=== PATIENT | male | born 1945 | race Caucasian/White ===

== ENCOUNTER 2019-03-09 06:30 | Observation (INO) ==
[2019-03-09 07:08] LABS: Bilirubin,Urine Small (Negative); Blood,Urine Negative (Negative); Clarity,Urine Clear (Clear); Color,Urine Dark Yellow (Yellow); Glucose,Urine (UA) >=1000 mg/dL (Normal); Ketones,Urine 15 mg/dL (Negative); Leukocyte Esterase,Urine Trace (Negative); Nitrite,Urine Negative (Negative); PH,Urine 5.5 pH Units (5.0-8.0); Protein,Urine Negative (Neg-Trace); Specific Gravity,Urine 1.019 (1.010-1.025); Urobilinogen,Urine Normal (Normal)
[2019-03-09 07:10] LABS: Bacteria,Urine None Seen per hpf (None-Few); Hyaline Casts,Urine None Seen per lpf (None-Few); RBC,Urine 15-30 per hpf (0-3); Squamous Epithelial Cell,Urine None Seen per lpf (None-Few); WBC,Urine 0-3 per hpf (0-3)
--- NOTE | 2019-03-09 07:12 | Emergency Department Note ---
Disposition Clinical Impression: Acute cholecystitis Disposition: Admitted As Inpatient Condition: Good Referrals: Get Stark DO [Primary Care Provider] - Forms: ED Satisfaction Letter, Work/School Release Time of Disposition: 09:34 Abdominal Pain HPI - General Chief Complaint: ED Abdominal Pain Stated Complaint: upper abd pain Time Seen by Provider: 03/09/19 06:36 Source: patient Mode of arrival: private vehicle Limitations: no limitations Nursing Notes Reviewed: Yes Vital Signs Reviewed: Yes - History of Present Illness HPI Narrative: Carl is a pleasant 73 yo M. He presents to the clinic with a CC of "attacks" his right upper quadrant worsening over the past 2 or 3 months. He notes that he is also side of radiation to the right shoulder recently. He states that the attacks are worse with fried food however states that last night he was eating a salad when the worst attack came. He also noted that he had chills last night which prompted him to seek emergency medical care today. Fevers vomiting but states he has been nauseous. Denies previous abdominal surgeries. He currently rates his pain at a 5 out of 10 states that last night his attacks the worst pain he said his life. He states that the attacks last for roughly 2 or 3 hours and then go away without medication or other intervention. He currently denies pain medication. Last food intake was 3 PM yesterday. He states that he had sips of water throughout the evening. She does take Rosetta her last dose 7:30 AM on March 08 roughly 24 hours ago. Pt Subjective Complaint: abdominal pain Onset (ago): month(s) Consistency: intermittent Location: RUQ Pain Scale: 6 Quality: cramping Radiation: other Improves with: rest Worsens with: eating Associated symptoms: Reports: nausea - Related Data Allergies Allergy/AdvReac Type Severity Reaction Status Date / Time No Known Allergies Allergy Verified 03/09/19 06:33 All systems ED: reviewed and negative except as stated. Review of Systems: As Per HPI Abdominal Pain PMH - Past Medical History Medical history: Reports: asthma, hyperlipidemia, hypertension Male Surgical History: Reports: vasectomy Psychiatric history: Reports: no psych history - Social History Smoking status: Never smoker Alcohol use: Reports: occasionally Drug use: Reports: none Physical Exam - General Limitations: no limitations General appearance: alert, in no apparent distress - Head Head exam: atraumatic - Eye Eye exam: Present: normal appearance, PERRL - Chest Chest inspection: Present: normal inspection, symmetric chest wall rise - Respiratory Respiratory exam: Present: normal lung sounds bilaterally. Absent: respiratory distress, wheezes - Cardiovascular Cardiovascular exam: Present: regular rate, normal rhythm - Abdominal Exam Abdominal exam: Present: soft, tenderness, other (Negative Meraz sign). Absent: guarding, rebound, Meraz's sign - Extremities Exam Extremities exam: Present: normal inspection - Expanded Lower Extremity Exam Hip/Pelvis exam: Present: normal inspection Neurovascular/Tendon exam: Present: normal capillary refill Gait: not tested/not observed - Back Exam Back exam: Present: normal inspection - Neurological Exam Neurological exam: Present: alert, oriented X3 - Psychiatric Psychiatric exam: Present: normal affect, normal mood - Skin Skin exam: Present: warm, dry, intact Course Vital Signs Temperature 98.7 F 03/09/19 06:33 Pulse Rate 74 03/09/19 06:33 Respiratory Rate 16 03/09/19 06:33 Blood Pressure 172/88 03/09/19 06:33 O2 Sat by Pulse Oximetry 96 03/09/19 06:33 Temperature 98.7 F 03/09/19 06:33 Pulse Rate 74 03/09/19 06:33 Respiratory Rate 16 03/09/19 06:33 Blood Pressure 172/88 03/09/19 06:33 O2 Sat by Pulse Oximetry 96 03/09/19 06:33 Oxygen Delivery Oxygen Delivery Room Air Abdominal Pain - MDM Narrative Medical decision making narrative: Kamran - surgeon. Case is discussed with Dr. Andrew 905. At 9:15 Dr. Andrew was at bedside. Patient was kept nothing by mouth while in the emergency room. Acute cholecystitis visible on ultrasound. Patient did note some increased pain before he was taken off the floor he was given some Motrin and Bentyl for his discomfort. Dr. Andrew admitted patient. - Medical Records Medical records reviewed: Yes I reviewed the patient's medical records. - Lab Data Lab results reviewed: Yes I reviewed the patient's lab results. Result diagrams: 03/09/19 07:56 Lab Results 03/09/19 03/09/19 Range/Units 06:43 07:56 WBC 17.0 H (4.3-11.1) K/mcL RBC 4.88 (4.19-5.50) M/mcL Hgb 15.7 (12.9-16.9) g/dL Hct 45.4 (37.5-50.1) % MCV 93.0 (83.0-100.0) fL MCH 32.2 (28.0-33.3) pg MCHC 34.6 (31.6-35.5) g/dL RDW 12.4 (11.5-14.5) % Plt Count 207 (140-400) K/mcL MPV 10.0 (9.4-12.4) fL Immature Gran % 0.4 (0-4) % Seg Neutrophils % 90.5 % Lymphocytes % 2.4 % Monocytes % 6.5 % Eosinophils % 0.0 % Basophils % 0.2 % Neutrophils # 15.4 H (1.6-8.9) K/mcL Lymphocytes # 0.4 L (0.6-4.6) K/mcL Monocytes # 1.1 (0.0-1.3) K/mcL Eosinophils # 0.0 (0.0-0.6) K/mcL Basophils # 0.0 (0.0-0.2) K/mcL Urine Color Dark Yellow (Yellow) Urine Clarity Clear (Clear) Urine pH 5.5 (5.0-8.0) pH Units Ur Specific [place] 1.019 (1.010-1.025) Urine Protein Negative (Neg-Trace) mg/dL Urine Glucose (UA) >=1000 H (Normal) mg/dL Urine Ketones 15 H (Negative) mg/dL Urine Blood Negative (Negative) Urine Nitrite Negative (Negative) Urine Bilirubin Small H (Negative) Urine Urobilinogen Normal (Normal) mg/dL Ur Leukocyte Esterase Trace H (Negative) Urine Microscopic RBC 15-30 H (0-3) per hpf Urine Microscopic WBC 0-3 (0-3) per hpf Ur Squamous Epith Cells None Seen (None-Few) per lpf Urine Bacteria None Seen (None-Few) per hpf Hyaline Casts None Seen (None-Few) per lpf Ur Culture Indicated? YES A (NO) - Radiology Data Radiology results reviewed: Yes I reviewed the patient's radiology results. - EKG Data EKG attestation: Yes I reviewed and interpreted this EKG.
[2019-03-09 08:07] LABS: Basophils % 0.2 %; Hematocrit 45.4 % (37.5-50.1); Hemoglobin 15.7 g/dL (12.9-16.9); Immature Granulocytes % 0.4 % (0-4); Lymphocytes # 0.4 K/mcL (0.6-4.6); Lymphocytes % 2.4 %; Mean Corpuscular HGB Conc 34.6 g/dL (31.6-35.5); Mean Corpuscular Hemoglobin 32.2 pg (28.0-33.3); Monocytes # 1.1 K/mcL (0.0-1.3); Monocytes % 6.5 %; Neutrophils # 15.4 K/mcL (1.6-8.9); Platelet Count 207 K/mcL (140-400); Red Blood Count 4.88 M/mcL (4.19-5.50); Red Cell Distribution Width 12.4 % (11.5-14.5); Segmented Neutrophils % 90.5 %
--- NOTE | 2019-03-09 09:09 | Acute Care Surgery H&P ---
<MckaylaMinoo N - Last Filed: 03/09/19 09:33> Date of Encounter: 03/09/19 Time of Encounter: 09:33 Assessment and Plan (1) Cholecystitis Current Visit: Yes Status: Acute 73-year-old male presenting to the emergency department with 2-3 month history of biliary colic with right upper quadrant ultrasound imaging evidence for acute cholecystitis -imaging and symptoms consistent with acute cholecystitis -Plan for laparoscopic cholecystectomy today -IV antibiotics with mefoxin Q8H -Last oral intake was 3 PM previous day, continue NPO -DVT prophylaxis -Risks and benefits of the surgery were explained to patient and . They have agreed to proceed with surgery and all were answered. History of Present Illness Chief complaint: abdominal pain HPI: Mr. Mcfarlane is a 73 year old male with a history of hypertension and hyperlipidemia who presented to the emergency department with a 2 to three-month history of right upper quadrant abdominal pain. Pain is postprandial in nature and worse with fatty foods. Reports the pain last night was the worst it has been an associated with chills. Also reports nausea, but no vomiting or fevers. Patient denied any history of abdominal surgeries, only previous hospital admissions has been for acute diverticulitis which was treated with IV antibiotics. Workup in the emergency department included a gallbladder ultrasound significant for intrahepatic biliary ductal dilation with gallbladder wall thickening and pericholecystic fluid with multiple gallstones in the gallbladder concerning acute cholecystitis was consistent with patient's biliary colic symptoms. Patient is currently resting comfortably in bed in no acute di stress, reports last food intake was approximately 3 PM the previous day. Past Med Surg Social Fam HX - Past Medical History Medical history: asthma, hyperlipidemia, hypertension Psychiatric history: no psych history - Social History Smoking Status: Never smoker Smokeless Tobacco Status: No Alcohol use: occasionally Drug use: none Medications and Allergies Allergy/AdvReac Type Severity Reaction Status Date / Time No Known Allergies Allergy Verified 03/09/19 06:33 Review of Systems All systems PM: The remainder of the systems were reviewed and are negative - Constitutional chills, no fever(s) - Cardiovascular no chest pain - Respiratory no dyspnea - Gastrointestinal abdominal pain, nausea, no constipation, no diarrhea, no vomiting - Integumentary no rash General Surgery Exam Initial Vital Signs Temp Pulse Resp BP Pulse Ox 98.7 F 74 16 172/88 96 03/09/19 06:33 03/09/19 06:33 03/09/19 06:33 03/09/19 06:33 03/09/19 06:33 - General physical appearance well developed, well nourished - Eyes PERRL, normal ocular movement - ENT normal pinna, normal nares - Neck trachea midline, no venous distension - Respiratory normal expansion, normal respiratory effort, other (Mild wheezes on expiration) - Cardiovascular Cardiovascular exam: Present: RRR. Absent: murmurs - Abdomen Abdomen general surgery: Present: bowel sounds present, soft, tender (Mild tenderness to palpation of the right upper quadrant) - Integumentary Integumentary general surgery: Present: warm and dry - Musculoskeletal Present: normal posture - Psychiatric Psychiatric general surgery: Present: A&Ox3, appropriate Results - Labs 03/09/19 07:56 Abnormal lab results WBC 17.0 K/mcL (4.3-11.1) H 03/09/19 07:56 15.4 K/mcL (1.6-8.9) H 03/09/19 07:56 0.4 K/mcL (0.6-4.6) L 03/09/19 07:56 >=1000 mg/dL (Normal) H 03/09/19 06:43 15 mg/dL (Negative) H 03/09/19 06:43 Small (Negative) H 03/09/19 06:43 Ur Leukocyte Esterase Trace (Negative) H 03/09/19 06:43 15-30 per hpf (0-3) H 03/09/19 06:43 Ur Culture Indicated? YES (NO) A 03/09/19 06:43 All other labs normal. <Davidson Andrew - Last Filed: 03/09/19 11:07> Date of Encounter: 03/09/19 History of Present Illness HPI: Mr. Mcfarlane is a 73 year old male Review of Systems All systems PM: The remainder of the systems were reviewed and are negative General Surgery Exam Initial Vital Signs Temp Pulse Resp BP Pulse Ox 98.7 F 74 16 172/88 96 03/09/19 06:33 03/09/19 06:33 03/09/19 06:33 03/09/19 06:33 03/09/19 06:33 Results - Labs 03/09/19 07:56 03/09/19 07:56 Abnormal lab results WBC 17.0 K/mcL (4.3-11.1) H 03/09/19 07:56 15.4 K/mcL (1.6-8.9) H 03/09/19 07:56 0.4 K/mcL (0.6-4.6) L 03/09/19 07:56 Chloride 97 mEq/L (98-107) L 03/09/19 07:56 Glucose 238 mg/dL (70-105) H 03/09/19 07:56 4.2 mg/dL (0.3-1.0) H 03/09/19 07:56 2.4 mg/dL (0.0-0.2) H 03/09/19 07:56 1.8 mg/dL (0.0-1.2) H 03/09/19 07:56 AST 191 Units/L (13-39) H 03/09/19 07:56 ALT 301 Units/L (7-52) H 03/09/19 07:56 2.0 g/dL (2.4-3.5) L 03/09/19 07:56 2.5 (1.1-2.2) H 03/09/19 07:56 < 3 Units/L (11-82) L 03/09/19 07:56 >=1000 mg/dL (Normal) H 03/09/19 06:43 15 mg/dL (Negative) H 03/09/19 06:43 Small (Negative) H 03/09/19 06:43 Ur Leukocyte Esterase Trace (Negative) H 03/09/19 06:43 15-30 per hpf (0-3) H 03/09/19 06:43 Ur Culture Indicated? YES (NO) A 03/09/19 06:43 Diabetes panel 03/09/19 Range/Units 07:56 Sodium 136 (136-145) mEq/L Potassium 3.9 (3.5-5.1) mEq/L Chloride 97 L (98-107) mEq/L Carbon Dioxide 26 (23-29) mEq/L BUN 15 (8-23) mg/dL Creatinine 0.92 (0.70-1.30) mg/dL Glucose 238 H (70-105) mg/dL Calcium 9.7 (8.6-10.3) mg/dL AST 191 H (13-39) Units/L ALT 301 H (7-52) Units/L Alkaline Phosphatase 59 (34-104) Units/L Albumin 5.0 (3.5-5.7) g/dL Calcium panel 03/09/19 Range/Units 07:56 Calcium 9.7 (8.6-10.3) mg/dL Albumin 5.0 (3.5-5.7) g/dL Pituitary panel 03/09/19 Range/Units 07:56 Sodium 136 (136-145) mEq/L Potassium 3.9 (3.5-5.1) mEq/L Chloride 97 L (98-107) mEq/L Carbon Dioxide 26 (23-29) mEq/L BUN 15 (8-23) mg/dL Creatinine 0.92 (0.70-1.30) mg/dL Glucose 238 H (70-105) mg/dL Calcium 9.7 (8.6-10.3) mg/dL Adrenal panel 03/09/19 Range/Units 07:56 Sodium 136 (136-145) mEq/L Potassium 3.9 (3.5-5.1) mEq/L Chloride 97 L (98-107) mEq/L Carbon Dioxide 26 (23-29) mEq/L BUN 15 (8-23) mg/dL Creatinine 0.92 (0.70-1.30) mg/dL Glucose 238 H (70-105) mg/dL Calcium 9.7 (8.6-10.3) mg/dL Total Bilirubin 4.2 H (0.3-1.0) mg/dL AST 191 H (13-39) Units/L ALT 301 H (7-52) Units/L Alkaline Phosphatase 59 (34-104) Units/L Albumin 5.0 (3.5-5.7) g/dL All other labs normal. - Attending Attestation I examined this patient and my medical decision-making was reviewed with the Resident Physician. I agree with the documented findings, disposition and treatment plan as described except to the extent set forth below. The patient is seen and evaluated in the emergency room with the resident. I personally reviewed reviewed the ultrasound images. The patient appears to have acute on chronic cholecystitis with cholelithiasis and leukocytosis. I recommended laparoscopic cholecystectomy and IV antibiotic therapy. Davidson Andrew MD FACS
[2019-03-09] MEDS ORDERED: *HR* Morphine 2 MG/ML SYRINGE IVP ONE (09:21)
--- NOTE | 2019-03-09 09:22 | Emergency Department Note ---
Disposition Clinical Impression: Cholecystitis Disposition: Admitted As Inpatient Condition: Good Time of Disposition: 09:10 General Adult HPI - General Chief complaint: ED Abdominal Pain Stated complaint: upper abd pain Time Seen by Provider: 03/09/19 06:36 Source: patient Mode of arrival: private vehicle Limitations: no limitations - History of Present Illness Pain Scale: 6 - Related Data Allergies Allergy/AdvReac Type Severity Reaction Status Date / Time No Known Allergies Allergy Verified 03/09/19 06:33 Past Medical History - Past Medical History Medical history: Reports: asthma, hyperlipidemia, hypertension Psychiatric history: Reports: no psych history - Social History Smoking Status: Never smoker Smokeless Tobacco Status: No Alcohol use: Reports: occasionally Drug use: Reports: none Physical Exam - General Limitations: no limitations General appearance: alert, in no apparent distress Course Vital Signs Temperature 98.7 F 03/09/19 06:33 Pulse Rate 74 03/09/19 06:33 Respiratory Rate 16 03/09/19 06:33 Blood Pressure 172/88 03/09/19 06:33 O2 Sat by Pulse Oximetry 96 03/09/19 06:33 Temperature 98.7 F 03/09/19 06:33 Pulse Rate 74 03/09/19 06:33 Respiratory Rate 16 03/09/19 06:33 Blood Pressure 172/88 03/09/19 06:33 O2 Sat by Pulse Oximetry 96 03/09/19 06:33 Oxygen Delivery Oxygen Delivery Room Air Medical Decision Making - Lab Data Result diagrams: 03/09/19 07:56 Lab Results 03/09/19 03/09/19 Range/Units 06:43 07:56 WBC 17.0 H (4.3-11.1) K/mcL RBC 4.88 (4.19-5.50) M/mcL Hgb 15.7 (12.9-16.9) g/dL Hct 45.4 (37.5-50.1) % MCV 93.0 (83.0-100.0) fL MCH 32.2 (28.0-33.3) pg MCHC 34.6 (31.6-35.5) g/dL RDW 12.4 (11.5-14.5) % Plt Count 207 (140-400) K/mcL MPV 10.0 (9.4-12.4) fL Immature Gran % 0.4 (0-4) % Seg Neutrophils % 90.5 % Lymphocytes % 2.4 % Monocytes % 6.5 % Eosinophils % 0.0 % Basophils % 0.2 % Neutrophils # 15.4 H (1.6-8.9) K/mcL Lymphocytes # 0.4 L (0.6-4.6) K/mcL Monocytes # 1.1 (0.0-1.3) K/mcL Eosinophils # 0.0 (0.0-0.6) K/mcL Basophils # 0.0 (0.0-0.2) K/mcL Urine Color Dark Yellow (Yellow) Urine Clarity Clear (Clear) Urine pH 5.5 (5.0-8.0) pH Units Ur Specific [place] 1.019 (1.010-1.025) Urine Protein Negative (Neg-Trace) mg/dL Urine Glucose (UA) >=1000 H (Normal) mg/dL Urine Ketones 15 H (Negative) mg/dL Urine Blood Negative (Negative) Urine Nitrite Negative (Negative) Urine Bilirubin Small H (Negative) Urine Urobilinogen Normal (Normal) mg/dL Ur Leukocyte Esterase Trace H (Negative) Urine Microscopic RBC 15-30 H (0-3) per hpf Urine Microscopic WBC 0-3 (0-3) per hpf Ur Squamous Epith Cells None Seen (None-Few) per lpf Urine Bacteria None Seen (None-Few) per hpf Hyaline Casts None Seen (None-Few) per lpf Ur Culture Indicated? YES A (NO) Attestation Statement - Attestation Attestation: For this encounter, I have reviewed the GROUND SURVEILLANCE SYSTEMS OPERATOR or PA documentation, treatment plan, and medical decision making; and I have had face to face time with this patient. Patient appears comfortable on my arrival to the room but is still complaining of pain. We have given him some symptomatic treatment. Has cholecystitis by ultrasound. Accepted by the surgeon for admission.
[2019-03-09] MEDS ORDERED: Dicyclomine 20 MG/2 ML AMPUL IM ONE (09:23)
[2019-03-09] MEDS ORDERED: Naloxone 0.4 MG/ML INJ IVP PRN ×2 (09:31→18:37)
[2019-03-09] MEDS ORDERED: Ondansetron ODT 4 MG TAB.RAPDIS SL PRN ×2 (09:31→18:37)
[2019-03-09] MEDS ORDERED: *HR* OxyCODONE/APAP 5/325 TABLET PO PRN ×2 (09:40→18:37)
[2019-03-09 10:10] LABS: Alanine Aminotransferase 301 Units/L (7-52); Albumin/Globulin Ratio 2.5 (1.1-2.2); Alkaline Phosphatase 59 Units/L (34-104); Aspartate Amino Transferase 191 Units/L (13-39); BUN/Creatinine Ratio 16 (6-26); Bilirubin,Direct 2.4 mg/dL (0.0-0.2); Bilirubin,Indirect 1.8 mg/dL (0.0-1.2); Bilirubin,Total 4.2 mg/dL (0.3-1.0); Blood Urea Nitrogen 15 mg/dL (8-23); Calcium 9.7 mg/dL (8.6-10.3); Carbon Dioxide 26 mEq/L (23-29); Chloride 97 mEq/L (98-107); Glucose 238 mg/dL (70-105); Lipase < 3 Units/L (11-82); Osmolality,Calculated 291 (280-300); Potassium 3.9 mEq/L (3.5-5.1); Sodium 136 mEq/L (136-145); Troponin I < 0.03 ng/mL (< 0.04); eGFR For Non-African Americans > 60 (> 60)
[2019-03-09] MEDS ORDERED: *HR* Heparin 5,000 UNIT/ML VIAL SQ SCH (14:00)
[2019-03-09] MEDS ORDERED: Ringers Solution, Lactated 500 ML IVC ONE (14:23)
[2019-03-09] MEDS ORDERED: Acetaminophen 650 MG RECTAL SUPP RC ONE (14:26)
[2019-03-09] MEDS ORDERED: Acetaminophen 325 MG RECTAL SUPP RC ONE (14:29)
--- NOTE | 2019-03-09 15:15 | Anesthesia Evaluation PreOp ---
Date of Encounter: 03/09/19 Time of Encounter: 16:28 - Past History Planned Operation: Lap cholecystectomy, gram Cardiac History: HTN, Hyperlipidemia Pulmonary History: Asthma FOOD AND DRUG RESEARCH SCIENTIST History: Denies Any Significant HX Other Medical History: Hepatic (elevated LFT's - acute cholecystitis), Diabetes Type II (does not take medications) Anesthesia History: No Prior Anesthetic Complications (no fhx of problems with anesthesia) Alcohol Use: occasionally Drug use: none Medications and Allergies Allergy/AdvReac Type Severity Reaction Status Date / Time No Known Allergies Allergy Verified 03/09/19 06:33 - Meds/Allergy Pre-op Review Medications Reviewed: Yes Allergies Reviewed: Yes Beta Blockers on Current Med List: No Anesthesia Results - Labs 03/09/19 07:56 03/09/19 07:56 Anesthesia Exam Last Vital Signs Temp 102.9 F H 03/09/19 14:15 Pulse 126 03/09/19 14:15 Resp 18 03/09/19 14:15 BP 120/64 03/09/19 14:15 Pulse Ox 91 03/09/19 14:15 Weight: 200 lbs NPO (# of Hours): > 8 hrs - HEENT Pupil (Motor): Pupils equal, EOMI Mallampati: III Teeth: Normal Oral Opening: Greater than 3 - FOOD AND DRUG RESEARCH SCIENTIST LOC: Oriented - Cardiac Rhythm: Regular Murmur: None - Pulmonary Breath Sounds: bilateral Clear Respiratory Effort: Symmetrical Anesthesia Assess/Plan ASA Score: 2 Level of consciousness: Cooperative Anesthetic Plan: General Monitoring Plan: Standard Monitors Recovery Plan: PACU
[2019-03-09] MEDS ORDERED: cefOXitin 2,000 MG in Water for inj. (sterile) 20 ML 20 ML IVP SCH (16:00)
[2019-03-09] MEDS ORDERED: *HR* Propofol 200 MG/20 ML VIAL IVP ONE (16:15)
[2019-03-09] MEDS ORDERED: *HR* FentaNYL (PF) 100 MCG/2 ML VIAL ONE ×2 (16:15)
[2019-03-09] MEDS ORDERED: *HR* Succinylcholine 200 MG/10 ML VIAL IVP ONE (16:18)
[2019-03-09] MEDS ORDERED: Lidocaine -MPF 2% 2 ML VIAL ONE (16:18)
[2019-03-09] MEDS ORDERED: *HR* Rocuronium Bromide 50 MG/5 ML VIAL ONE (16:18)
[2019-03-09] MEDS ORDERED: CefOXitin 1,000 MG VIAL ONE (16:19)
[2019-03-09] MEDS ORDERED: Lidocaine -MPF 4% 5 ML AMPUL ONE (16:19)
[2019-03-09] MEDS ORDERED: Isovue-300 50 ML VIAL ONE (16:46)
[2019-03-09] MEDS ORDERED: Dexamethasone 4 MG/ML VIAL ONE (16:52)
[2019-03-09] MEDS ORDERED: Ondansetron 4 MG/2 ML VIAL ONE (16:52)
[2019-03-09] MEDS ORDERED: *HR* PHENYLEPHRINE 1,000 MCG/10 ML SYRINGE IVP ONE ×2 (17:02→17:15)
[2019-03-09] MEDS ORDERED: Ketorolac 30 MG/ML VIAL ONE (17:12)
--- NOTE | 2019-03-09 17:55 | Operative Note ---
Date of procedure: 03/09/19 Pre-op diagnosis: Acute cholecystitis Post-op diagnosis: same Procedure: Laparoscopic cholecystectomy, cholangiogram Anesthesia: PRIMO Surgeon: Davidson Andrew Was there an commercial escrow assistant present: Yes Survey Interviewer: Sofya Uriarte Estimated blood loss (cc): 25 Specimen: Gallbladder and contents Condition: stable Disposition: PACU Procedure in Detail: Laparoscopic cholecystectomy and intraoperative cholangiogram Operative procedure: after informed consent and appropriate patient identification, the patient was taken to the major operating suite and placed supine position and given adequate general endotracheal anesthesia. The abdomen was prepped and draped in sterile fashion utilizing ChloraPrep standard draping techniques. Timeout was taken and the patient was identified. I made a vertical midline incision below the umbilicus and dissected down to level of fascia. I placed 2 traction stitches of 0 vicryl in the midline fascia and the abdominal cavity was entered visually. A Mckay trocar was placed in the abdomen and the abdomen was insufflated to 15 mmHg pressure CO2. The gallbladder was visualized. I placemed an 11 port in the subxiphoid area and two 5 mm ports in the subcostal area. The gallbladder was visualized. The gallbladder was grossly edematous. There was visible pus from the surface of the gallbladder consistent with acute cholecystitis. The gallbladder was grasped and elevated. A variety of blunt and sharp dissection techniques were used to isolate the cystic duct and cystic artery. The cystic artery was controlled with 2 surgical clips proximally and one distally and it was divided. I placed a surgical clip on the neck the gallbladder and obtained an intraoperative cholangiogram using 30 mL of Isovue. Intraoperative cholangiogram was normal. The cholangiocatheter was removed and the cystic duct was controlled with 2 surgical clips proximally and was divided. The gallbladder was removed from the gallbladder fossae using electrocautery. The gallbladder was removed from the abdomen through the #11 port site. I replaced the #11 port and irrigated with copious amounts of antibiotic containing solution. There was no evidence of bleeding or bile leak. All trochars were removed. Fascia was closed with 0 Vicryl and the skin with 2-0 and 4-0 Vicry. He tolerated the procedure well and was transferred to recovery in stable condition
[2019-03-09] MEDS ORDERED: Ringers Solution, Lactated 1,000 ML ONE (18:20)
[2019-03-09] MEDS ORDERED: OXYCODONE Oral CONC 10 MG/0.5 ML ORAL.SYG SL PRN (18:37)
[2019-03-09] MEDS: *HR* Heparin 5,000 UNIT/ML VIAL SQ SCH (20:34)
[2019-03-09] MEDS: cefOXitin 2,000 MG in Water for inj. (sterile) 20 ML 20 ML IVP SCH (23:46)
[2019-03-10 02:16] LABS: Basophils % 0.1 %; Hematocrit 39.8 % (37.5-50.1); Immature Granulocytes % 0.4 % (0-4); Lymphocytes # 0.3 K/mcL (0.6-4.6); Lymphocytes % 2.6 %; Mean Corpuscular HGB Conc 34.4 g/dL (31.6-35.5); Mean Platelet Volume 10.7 fL (9.4-12.4); Monocytes # 0.5 K/mcL (0.0-1.3); Monocytes % 4.8 %; Platelet Count 146 K/mcL (140-400); Red Blood Count 4.28 M/mcL (4.19-5.50); Red Cell Distribution Width 12.8 % (11.5-14.5); Segmented Neutrophils % 92.1 %
[2019-03-10 02:18] LABS: Hemoglobin 13.7 g/dL (12.9-16.9); Neutrophils # 9.9 K/mcL (1.6-8.9)
[2019-03-10 02:35] LABS: Platelet Estimate Decreased (Normal)
[2019-03-10 02:36] LABS: Alanine Aminotransferase 255 Units/L (7-52); Albumin 3.8 g/dL (3.5-5.7); Albumin/Globulin Ratio 1.8 (1.1-2.2); Alkaline Phosphatase 49 Units/L (34-104); Aspartate Amino Transferase 118 Units/L (13-39); BUN/Creatinine Ratio 17 (6-26); Bilirubin,Total 9.3 mg/dL (0.3-1.0); Blood Urea Nitrogen 19 mg/dL (8-23); Calcium 8.4 mg/dL (8.6-10.3); Carbon Dioxide 25 mEq/L (23-29); Chloride 100 mEq/L (98-107); Globulin 2.1 g/dL (2.4-3.5); Glucose 298 mg/dL (70-105); Osmolality,Calculated 295 (280-300); Potassium 3.7 mEq/L (3.5-5.1); Sodium 136 mEq/L (136-145); Total Protein 5.9 g/dL (6.4-8.9); eGFR For Non-African Americans > 60 (> 60)
[2019-03-10] MEDS: *HR* Heparin 5,000 UNIT/ML VIAL SQ SCH (06:05)
[2019-03-10] MEDS: cefOXitin 2,000 MG in Water for inj. (sterile) 20 ML 20 ML IVP SCH (09:21)
--- NOTE | 2019-03-10 10:58 | Discharge Summary ---
<Minoo Block N - Last Filed: 03/10/19 12:19> - NOTES TO OUTPATIENT PROVIDER Notes to Outpatient Provider: Patient is postoperative day 1 from lap Cholecystectomy for acute cholecystitis. Patient has hyperbilirubinemia with a total bilirubin of 4.2 on admission which fabrice to 9.3 after surgery. Recommend rechecking BMP and hepatic panel for resolution an outpatient basis. Patient also met sepsis criteria as he spiked one fever 102.9 prior to surgery, he was treated with IV antibiotics while inpatient remained afebrile for 24 hours prior to discharge. Orders not resulted at time of discharge: Pending orders 03/09/19 06:43 Culture,Urine [RM] Stat 03/09/19 17:50 Surgical Pathology [PTH] Routine Date of Encounter: 03/10/19 Time of Encounter: 07:30 - Discharge Diagnosis (1) Cholecystitis Priority: Primary Status: Acute General Surgery Exam Initial Vital Signs Temp Pulse Resp BP Pulse Ox 98.7 F 74 16 172/88 96 03/09/19 06:33 03/09/19 06:33 03/09/19 06:33 03/09/19 06:33 03/09/19 06:33 - General physical appearance well developed, well nourished - Eyes PERRL, normal ocular movement - ENT normal pinna, normal nares - Neck trachea midline, no venous distension - Respiratory normal expansion, normal respiratory effort - Cardiovascular Cardiovascular exam: Present: RRR - Abdomen Abdomen general surgery: Present: bowel sounds present, soft, tender (Appropriate postsurgical tenderness) - Incision Incision: Present: clean and dry, intact - Integumentary Integumentary general surgery: Present: warm and dry - Psychiatric Psychiatric general surgery: Present: A&Ox3, appropriate - Hospital Course Hospital course: Mr. Mcfarlane is a 73 year old male with a history of hypertension and hyperlipidemia who presented to the emergency department with a 2 to 3 month history of right upper quadrant abdominal pain. Pain is postprandial in nature and worse with fatty foods. Reports the pain last night was the worst it has been an associated with chills. Also reports nausea, but no vomiting or fevers. Patient denied any history of abdominal surgeries, only previous hospital admissions has been for acute diverticulitis which was treated with IV antibiotics. Workup in the emergency department included a gallbladder ultrasound significant for intrahepatic biliary ductal dilation with gallbladder wall thickening and pericholecystic fluid with multiple gallstones in the gallbladder concerning acute cholecystitis was consistent with patient's biliary colic symptoms. Patient underwent lap scopic cholecystectomy on same day. Gallbladder was noted to be inflamed. Patient tolerated surgery without complications. Prior to surgery patient had a fever 102.9 recorded. Treated with Tylenol and IV antibiotics while inpatient. Patient has been afebrile for 24 hours prior to discharge. He will be discharged with 7 days of Augmentin. Of note patient had hyperbilirubinemia with total bilirubin 4.2 on admission, repeat bilirubin on postoperative day 1 was 9.3. LFTs improved on postoperative day 1. Recommend rechecking BMP and hepatic panel as an outpatient. Patient to follow-up with acute care surgeon outpatient 2 weeks. - Time Spent with Patient Total time spent providing and/or coordinating discharge services: - Discharge Medications Prescriptions: New Amoxicillin/Clavulanate [Augmentin] 875 mg PO BIDWM 7 Days #14 tablet OxyCODONE/APAP 5/325 [Percocet 5/325 MG] 1 each PO Q6HR PRN 7 Days #28 tablet PRN Reason: Pain Continued Red Yeast Rice 1,200 mg PO BID Fluticasone Propionate Nasal [Flonase] 1 spray NS DAILY Flaxseed Oil/Trail 3,6,9 [Sv Flaxseed Oil 1,300 mg Sftgl] 1 cap PO BID Non-Formulary Medication 14 drop PO BID Vitamin E 400 unit PO BID Trail-3S/Dha/Epa/Fish Oil [Fish Oil 1,200 mg Softgel] 1 cap PO BID Lutein/Zeaxanthin [Ocuvite Lutein 25-5 mg Softgel] 1 cap PO BID Omeprazole Magnesium [Prilosec Otc] 20 mg PO BID Lisinopril/Hydrochlorothiazide [Zestoretic 20-25 mg Tablet] 1 tab PO DAILY Fluticasone/Vilanterol [Breo Ellipta 100-25 Mcg INH] 1 puff IH DAILY Ubidecarenone [Co Q-10] 200 mg PO BID Sildenafil Citrate 100 mg PO AD PRN PRN Reason: ERECTION Albuterol Sulfate [Ventolin Hfa] 2 puff IH Q4H PRN PRN Reason: Shortness Of Breath Home Medications: Albuterol Sulfate [Ventolin Hfa] 2 puff IH Q4H PRN 03/09/19 [History] Flaxseed Oil/Trail 3,6,9 [Sv Flaxseed Oil 1,300 mg Sftgl] 1 cap PO BID 03/09/19 [History] Fluticasone Propionate Nasal [Flonase] 1 spray NS DAILY 03/09/19 [History] Fluticasone/Vilanterol [Breo Ellipta 100-25 Mcg INH] 1 puff IH DAILY 03/09/19 [History] Lisinopril/Hydrochlorothiazide [Zestoretic 20-25 mg Tablet] 1 tab PO DAILY 03/09/19 [History] Lutein/Zeaxanthin [Ocuvite Lutein 25-5 mg Softgel] 1 cap PO BID 03/09/19 [History] Non-Formulary Medication 14 drop PO BID 03/09/19 [History] Trail-3S/Dha/Epa/Fish Oil [Fish Oil 1,200 mg Softgel] 1 cap PO BID 03/09/19 [History] Omeprazole Magnesium [Prilosec Otc] 20 mg PO BID 03/09/19 [History] Red Yeast Rice 1,200 mg PO BID 03/09/19 [History] Sildenafil Citrate 100 mg PO AD PRN 03/09/19 [History] Ubidecarenone [Co Q-10] 200 mg PO BID 03/09/19 [History] Vitamin E 400 unit PO BID 03/09/19 [History] Amoxicillin/Clavulanate [Augmentin] 875 mg PO BIDWM 7 Days #14 tablet 03/10/19 [Rx] OxyCODONE/APAP 5/325 [Percocet 5/325 MG] 1 each PO Q6HR PRN 7 Days #28 tablet 03/10/19 [Rx] Allergies/Adverse Reactions: Allergy/AdvReac Type Severity Reaction Status Date / Time No Known Allergies Allergy Verified 03/09/19 17:24 Date of admission: 03/09/19 09:08 Primary care physician: Get Stark DO Discharging clinician: Minoo Block Anticipated date of discharge: 03/10/19 Labs on day of discharge: Labs from last 24 hours 03/10/19 03/10/19 03/09/19 01:46 01:46 16:25 WBC 10.7 RBC 4.28 Hgb 13.7 D Hct 39.8 MCV 93.0 MCH 32.0 MCHC 34.4 RDW 12.8 Plt Count 146 MPV 10.7 Immature Gran % 0.4 Seg Neutrophils % 92.1 Lymphocytes % 2.6 Monocytes % 4.8 Eosinophils % 0.0 Basophils % 0.1 Neutrophils # 9.9 H Lymphocytes # 0.3 L Monocytes # 0.5 Eosinophils # 0.0 Basophils # 0.0 Platelet Estimate Decreased L Sodium 136 Potassium 3.7 Chloride 100 Carbon Dioxide 25 BUN 19 Creatinine 1.12 Est GFR ( Amer) > 60 Est GFR (Non-Af Amer) > 60 BUN/Creatinine Ratio 17 Glucose 298 H POC Glucose 168 H Calculated Osmolality 295 Calcium 8.4 L Total Bilirubin 9.3 H AST 118 H ALT 255 H Alkaline Phosphatase 49 Serum Total Protein 5.9 L Albumin 3.8 Globulin 2.1 L Albumin/Globulin Ratio 1.8 03/09/19 14:13 WBC RBC Hgb Hct MCV MCH MCHC RDW Plt Count MPV Immature Gran % Seg Neutrophils % Lymphocytes % Monocytes % Eosinophils % Basophils % Neutrophils # Lymphocytes # Monocytes # Eosinophils # Basophils # Platelet Estimate Sodium Potassium Chloride Carbon Dioxide BUN Creatinine Est GFR ( Amer) Est GFR (Non-Af Amer) BUN/Creatinine Ratio Glucose POC Glucose 173 H Calculated Osmolality Calcium Total Bilirubin AST ALT Alkaline Phosphatase Serum Total Protein Albumin Globulin Albumin/Globulin Ratio Preliminary micro results at discharge 03/09/19 06:43 Urine Culture - Preliminary Urine,Clean Catch Culture is incubating. - Impressions ITS Impressions Cholangiogram,Operative 03/09/19 00:00 IMPRESSION: Intraoperative cholangiogram with no discrete filling defect identified. Please see separately dictated operative report for complete intraoperative findings. D/ / Jony Elliott MD / Jony Elliott MD Interpreting Provider: Jony Elliott MD Gallbladder Ultrasound 03/09/19 07:01 IMPRESSION: Intrahepatic biliary ductal dilatation with gallbladder wall thickening and pericholecystic fluid with multiple stones seen within the gallbladder concerning for acute cholecystitis. D/ / 03/09/2019 08:52:00 Richard Rodriguez MD / Francesca Waite Interpreting Provider: Richard Rodriguez MD - Patient Status Disposition: Home, Self-Care Condition: Good Overall status at discharge: patient is progressing back to baseline - Discharge Instructions Instructions: Laparoscopic Cholecystectomy (DC) Follow Up With: Get Stark DO [Primary Care Provider] - Acute Care Surgery [Provider Group] - 03/26/19 (please make appointment for patient in 2 weeks for follow up after acute cholecystectomy) Additional Instructions: Follow-up with your primary care provider in one week. Call [facility] to establish follow-up appointment in 2 weeks. Return to the emergency department if you develop any fevers, chills, chest pain, shortness of breath, worsening abdominal pain, jaundice/yellowing of the eyes or skin, nausea, vomiting, diarrhea, or for any other new or concerning symptoms. <Davidson Andrew - Last Filed: 03/10/19 12:34> Orders not resulted at time of discharge: Pending orders 03/09/19 17:50 Surgical Pathology [PTH] Routine Date of Encounter: 03/10/19 General Surgery Exam Initial Vital Signs Temp Pulse Resp BP Pulse Ox 98.7 F 74 16 172/88 96 03/09/19 06:33 03/09/19 06:33 03/09/19 06:33 03/09/19 06:33 03/09/19 06:33 - Hospital Course Hospital course: Mr. Mcfarlane is a 73 year old male - Time Spent with Patient Total time spent providing and/or coordinating discharge services: Date of admission: 03/09/19 09:08 Primary care physician: Get Stark DO Labs on day of discharge: Labs from last 24 hours 03/10/19 03/10/19 03/09/19 01:46 01:46 16:25 WBC 10.7 RBC 4.28 Hgb 13.7 D Hct 39.8 MCV 93.0 MCH 32.0 MCHC 34.4 RDW 12.8 Plt Count 146 MPV 10.7 Immature Gran % 0.4 Seg Neutrophils % 92.1 Lymphocytes % 2.6 Monocytes % 4.8 Eosinophils % 0.0 Basophils % 0.1 Neutrophils # 9.9 H Lymphocytes # 0.3 L Monocytes # 0.5 Eosinophils # 0.0 Basophils # 0.0 Platelet Estimate Decreased L Sodium 136 Potassium 3.7 Chloride 100 Carbon Dioxide 25 BUN 19 Creatinine 1.12 Est GFR ( Amer) > 60 Est GFR (Non-Af Amer) > 60 BUN/Creatinine Ratio 17 Glucose 298 H POC Glucose 168 H Calculated Osmolality 295 Calcium 8.4 L Total Bilirubin 9.3 H AST 118 H ALT 255 H Alkaline Phosphatase 49 Serum Total Protein 5.9 L Albumin 3.8 Globulin 2.1 L Albumin/Globulin Ratio 1.8 03/09/19 14:13 WBC RBC Hgb Hct MCV MCH MCHC RDW Plt Count MPV Immature Gran % Seg Neutrophils % Lymphocytes % Monocytes % Eosinophils % Basophils % Neutrophils # Lymphocytes # Monocytes # Eosinophils # Basophils # Platelet Estimate Sodium Potassium Chloride Carbon Dioxide BUN Creatinine Est GFR ( Amer) Est GFR (Non-Af Amer) BUN/Creatinine Ratio Glucose POC Glucose 173 H Calculated Osmolality Calcium Total Bilirubin AST ALT Alkaline Phosphatase Serum Total Protein Albumin Globulin Albumin/Globulin Ratio - Impressions ITS Impressions Cholangiogram,Operative 03/09/19 00:00 IMPRESSION: Intraoperative cholangiogram with no discrete filling defect identified. Please see separately dictated operative report for complete intraoperative findings. D/ / Jony Elliott MD / Jony Elliott MD Interpreting Provider: Jony Elliott MD Gallbladder Ultrasound 03/09/19 07:01 IMPRESSION: Intrahepatic biliary ductal dilatation with gallbladder wall thickening and pericholecystic fluid with multiple stones seen within the gallbladder concerning for acute cholecystitis. D/ / 03/09/2019 08:52:00 Richard Rodriguez MD / Francesca Waite Interpreting Provider: Richard Rodriguez MD - Attending Attestation I examined this patient and my medical decision-making was reviewed with the Resident Physician. I agree with the documented findings, disposition and treatment plan as described except to the extent set forth below. The patient is seen and evaluated on morning rounds with the acute care surgery team in the resident. The patient is had excellent pain control after cholecystectomy. We should be able to discharge him later today. I would recommend home antibiotic therapy secondary to severity of inflammation of the gallbladder and febrile episodes prior to cholecystectomy Davidson Andrew MD FACS
[2019-03-10 11:52] VITALS: BP 138/84
--- NOTE | 2019-03-10 19:15 | Electrocardiograph Report ---
[facility] [employer] Test Date: 2019-03-09 Pat Name: Carl Mcfarlane Department: [id number] Room: 3B21 Gender: M Activity Manager: : [id number] Requested By: Alexia Ness Order Number: [id number] Reading MD: Albert Villavicencio Measurements Intervals [place] Rate: 69 P: 67 PA: 210 QRS: -33 QRSD: 132 T: 37 QT: 400 QTc: 429 Interpretive Statements Sinus rhythm Prolonged PA interval Right bundle branch block Electronically Signed On 03-10-2019 19:14:27 EDT by Albert Villavicencio
== END 2019-03-10 14:17 | disposition home or self-care (01) ==
LOC: EMEROOARM 06:30 → 3BNU 06:30
PROVIDERS: ADMIT Surgery; ATTEND Surgery

== ENCOUNTER 2019-03-11 20:54 | Inpatient (IN) ==
[2019-03-11] MEDS ORDERED: Isovue-370 500 ML BOTTLE IVP ONE (22:14)
[2019-03-11 22:57] LABS: Basophils % 0.3 %; Eosinophils # 0.1 K/mcL (0.0-0.6); Eosinophils % 1.1 %; Hematocrit 45.1 % (37.5-50.1); Immature Granulocytes % 0.7 % (0-4); Lymphocytes # 0.6 K/mcL (0.6-4.6); Lymphocytes % 5.7 %; Mean Corpuscular Hemoglobin 32.2 pg (28.0-33.3); Mean Platelet Volume 10.7 fL (9.4-12.4); Monocytes % 9.1 %; Neutrophils # 9.1 K/mcL (1.6-8.9); Platelet Count 186 K/mcL (140-400); Red Cell Distribution Width 12.6 % (11.5-14.5); Segmented Neutrophils % 83.1 %
[2019-03-11 22:58] LABS: Hemoglobin 15.8 g/dL (12.9-16.9)
[2019-03-11 23:16] LABS: Alanine Aminotransferase 146 Units/L (7-52); Albumin/Globulin Ratio 1.4 (1.1-2.2); Alkaline Phosphatase 58 Units/L (34-104); Aspartate Amino Transferase 35 Units/L (13-39); BUN/Creatinine Ratio 29 (6-26); Bilirubin,Direct 2.5 mg/dL (0.0-0.2); Bilirubin,Indirect 2.4 mg/dL (0.0-1.2); Bilirubin,Total 4.9 mg/dL (0.3-1.0); Blood Urea Nitrogen 25 mg/dL (8-23); Calcium 10.7 mg/dL (8.6-10.3); Carbon Dioxide 32 mEq/L (23-29); Chloride 91 mEq/L (98-107); Globulin 2.9 g/dL (2.4-3.5); Glucose 218 mg/dL (70-105); Lipase 3 Units/L (11-82); Osmolality,Calculated 289 (280-300); Potassium 3.2 mEq/L (3.5-5.1); Sodium 134 mEq/L (136-145); Total Protein 6.9 g/dL (6.4-8.9); eGFR For Non-African Americans > 60 (> 60)
[2019-03-11 23:26] LABS: Bilirubin,Urine Moderate (Negative); Blood,Urine Negative (Negative); Clarity,Urine Turbid (Clear); Color,Urine Orange (Yellow); Glucose,Urine (UA) Normal (Normal); Ketones,Urine 40 mg/dL (Negative); Leukocyte Esterase,Urine Trace (Negative); Nitrite,Urine Negative (Negative); Protein,Urine 30 mg/dL (Neg-Trace); Specific Gravity,Urine 1.026 (1.010-1.025); Urobilinogen,Urine Normal (Normal)
[2019-03-11 23:29] LABS: Bacteria,Urine None Seen per hpf (None-Few); Hyaline Casts,Urine None Seen per lpf (None-Few); RBC,Urine 0-3 per hpf (0-3); Squamous Epithelial Cell,Urine Few per lpf (None-Few)
--- NOTE | 2019-03-11 23:32 | Emergency Department Note ---
Disposition Clinical Impression: Jaundice, Small bowel obstruction Post-operative complication Qualifiers: Surgical complication system/body Area: digestive system Surgical complication type: hemorrhage Procedure type: digestive system Qualified Code(s): K91.840 - Postprocedural hemorrhage of a digestive system organ or structure following a digestive system procedure Disposition: Admitted As Inpatient Condition: Fair Referrals: Get Stark DO [Primary Care Provider] - Forms: ED Satisfaction Letter, Work/School Release Time of Disposition: 00:11 General Adult HPI - General Chief complaint: ED General Medical Stated complaint: Swollen abd / Post op 03/09 Time Seen by Provider: 03/11/19 22:02 Source: patient Mode of arrival: ambulatory Limitations: no limitations Nursing Notes Reviewed: Yes Vital Signs Reviewed: Yes - History of Present Illness HPI Narrative: 73-year-old male with significant past medical history of hypertension presenting to the emergency department with chief complaint of abdominal distention following a cholecystectomy. Patient states he had a cholecystectomy 2 days ago. Since then he has had severe acid reflux and increasing abdominal distention. Today patient noticed he was jaundice and came in for further evaluation. Patient denies any chest pain or shortness of breath. Patient also has not been able to pass any flatus or have a bowel movement. No fevers. Pain Scale: 3 - Related Data Home Medications Medication Instructions Recorded Confirmed Albuterol Sulfate [Ventolin Hfa] 2 puff IH Q4H PRN 03/09/19 03/09/19 Flaxseed Oil/[place] 3,6,9 [Sv 1 cap PO BID 03/09/19 03/09/19 Flaxseed Oil 1,300 mg Sftgl] Fluticasone Propionate Nasal 1 spray NS DAILY 03/09/19 03/09/19 [Flonase] Fluticasone/Vilanterol [Breo 1 puff IH DAILY 03/09/19 03/09/19 Ellipta 100-25 Mcg INH] Lisinopril/Hydrochlorothiazide 1 tab PO DAILY 03/09/19 03/09/19 [Zestoretic 20-25 mg Tablet] Lutein/Zeaxanthin [Ocuvite Lutein 1 cap PO BID 03/09/19 03/09/19 25-5 mg Softgel] Non-Formulary Medication 14 drop PO BID 03/09/19 03/09/19 [place]-3S/Dha/Epa/Fish Oil [Fish 1 cap PO BID 03/09/19 03/09/19 Oil 1,200 mg Softgel] Omeprazole Magnesium [Prilosec Otc] 20 mg PO BID 03/09/19 03/09/19 Red Yeast Rice 1,200 mg PO BID 03/09/19 03/09/19 Sildenafil Citrate 100 mg PO AD PRN 03/09/19 Ubidecarenone [Co Q-10] 200 mg PO BID 03/09/19 03/09/19 Vitamin E 400 unit PO BID 03/09/19 03/09/19 Previous Rx's Medication Instructions Recorded Amoxicillin/Clavulanate [Augmentin] 875 mg PO BIDWM 7 Days #14 tablet 03/10/19 OxyCODONE/APAP 5/325 [Percocet 1 each PO Q6HR PRN 7 Days #28 03/10/19 5/325 MG] tablet Allergies Allergy/AdvReac Type Severity Reaction Status Date / Time No Known Allergies Allergy Verified 03/09/19 17:24 All systems ED: reviewed and negative except as stated. Constitutional: Denies: fever Eyes: Reports: as per HPI ENT ED: Reports: as per HPI Cardiovascular: Denies: chest pain Respiratory: Denies: dyspnea Gastrointestinal: Reports: as per HPI Genitourinary: Reports: as per HPI Musculoskeletal: Reports: as per HPI Integumentary: Reports: as per HPI Neurological: Reports: as per HPI Psychiatric: Reports: as per HPI Endocrine: Reports: as per HPI Hematological/Lymphatic: Reports: as per HPI Allergic/Immunologic: Reports: as per HPI Past Medical History - Past Medical History Attestation: Yes The following information was validated with the patient. Medical history: Reports: asthma, hyperlipidemia, hypertension Psychiatric history: Reports: no psych history - Social History Smoking Status: Never smoker Smokeless Tobacco Status: No Alcohol use: Reports: occasionally Drug use: Reports: none Physical Exam - General Limitations: no limitations General appearance: alert, in no apparent distress - Head Head exam: atraumatic, normocephalic, normal inspection - Eye Eye exam: Present: scleral icterus - ENT ENT exam: mucous membranes moist - Neck Neck exam: Present: full ROM - Chest Chest inspection: Present: symmetric chest wall rise - Respiratory Respiratory exam: Present: normal lung sounds bilaterally. Absent: respiratory distress, wheezes - Cardiovascular Cardiovascular exam: Present: regular rate, normal rhythm, normal heart sounds - Abdominal Exam Abdominal exam: Present: distention, other (Multiple well-healing surgical scars). Absent: guarding, rebound, rigidity - Extremities Exam Extremities exam: Present: full ROM - Neurological Exam Neurological exam: Present: alert, oriented X3 - Psychiatric Psychiatric exam: Present: normal affect, normal mood - Skin Skin exam: Present: other (Jaundice) Course Course Narrative: 73-year-old male presenting for jaundice and abdominal distention following a cholecystectomy. In the room he is alert and oriented 3 and hemodynamically stable. Physical exam is significant for jaundice, distended abdomen with well-healing surgical sites. At this time concern for postsurgical issue. We will obtain basic laboratory analysis including CBC, CMP, lipase along with a CT of abdomen and pelvis. Disposition most likely admission the pending results. Patient agrees with this plan. - Reevaluation(s) Reevaluation #1: Patient's laboratory analysis significant for a total bilirubin of 4.9. Mild hypokalemia. CT of the abdomen and pelvis shows following Multiple dilated loops of small bowel within the abdomen and pelvis, in keeping with small bowel obstruction, with transition point in the right hemiabdomen. Status post cholecystectomy. Small amount of complex fluid is seen at the gallbladder fossa, potentially postoperative hemorrhage, complex seroma, complex biloma, or early phlegmon. Appendix is upper limits of normal in caliber. Correlate with clinical presentation. Continued follow-up suggested. Trace pleural effusions and basilar atelectasis. Diverticulosis. I spoke with the surgeon on-call Dr. Abbott who agrees to evaluate the pa tient and admit to their service. She recommends adding Zosyn at this time. We will add this and plan to admit the patient. He remains alert and oriented 3 and hemodynamically stable. Patient agrees with this plan. Vital Signs Temperature 98.3 F 03/11/19 21:15 Pulse Rate 101 03/11/19 21:15 Respiratory Rate 16 03/11/19 21:15 Blood Pressure 151/97 03/11/19 21:15 O2 Sat by Pulse Oximetry 92 03/11/19 21:15 Temperature 98.3 F 03/11/19 21:15 Pulse Rate 98 03/11/19 22:11 Respiratory Rate 16 03/11/19 21:15 Blood Pressure 151/97 03/11/19 21:15 O2 Sat by Pulse Oximetry 92 03/11/19 21:15 Oxygen Delivery Oxygen Delivery Room Air Medical Decision Making - Lab Data Result diagrams: 03/11/19 22:24 03/11/19 22:24 Lab Results 03/11/19 03/11/19 03/11/19 Range/Units 22:24 22:24 23:13 WBC 11.0 (4.3-11.1) K/mcL RBC 4.90 (4.19-5.50) M/mcL Hgb 15.8 D (12.9-16.9) g/dL Hct 45.1 (37.5-50.1) % MCV 92.0 (83.0-100.0) fL MCH 32.2 (28.0-33.3) pg MCHC 35.0 (31.6-35.5) g/dL RDW 12.6 (11.5-14.5) % Plt Count 186 (140-400) K/mcL MPV 10.7 (9.4-12.4) fL Immature Gran % 0.7 (0-4) % Seg Neutrophils % 83.1 % Lymphocytes % 5.7 % Monocytes % 9.1 % Eosinophils % 1.1 % Basophils % 0.3 % Neutrophils # 9.1 H (1.6-8.9) K/mcL Lymphocytes # 0.6 (0.6-4.6) K/mcL Monocytes # 1.0 (0.0-1.3) K/mcL Eosinophils # 0.1 (0.0-0.6) K/mcL Basophils # 0.0 (0.0-0.2) K/mcL Sodium 134 L (136-145) mEq/L Potassium 3.2 L (3.5-5.1) mEq/L Chloride 91 L (98-107) mEq/L Carbon Dioxide 32 H (23-29) mEq/L BUN 25 H (8-23) mg/dL Creatinine 0.86 (0.70-1.30) mg/dL Est GFR ( Amer) > 60 (> 60) Est GFR (Non-Af Amer) > 60 (> 60) BUN/Creatinine Ratio 29 H (6-26) Glucose 218 H (70-105) mg/dL Calculated Osmolality 289 (280-300) Calcium 10.7 H (8.6-10.3) mg/dL Total Bilirubin 4.9 H (0.3-1.0) mg/dL Direct Bilirubin 2.5 H (0.0-0.2) mg/dL Indirect Bilirubin 2.4 H (0.0-1.2) mg/dL AST 35 (13-39) Units/L ALT 146 H (7-52) Units/L Alkaline Phosphatase 58 (34-104) Units/L Serum Total Protein 6.9 (6.4-8.9) g/dL Albumin 4.0 (3.5-5.7) g/dL Globulin 2.9 (2.4-3.5) g/dL Albumin/Globulin Ratio 1.4 (1.1-2.2) Lipase 3 L (11-82) Units/L Urine Color [place] A (Yellow) Urine Clarity Turbid A (Clear) Urine pH 6.0 (5.0-8.0) pH Units Ur Specific [place] 1.026 H (1.010-1.025) Urine Protein 30 H (Neg-Trace) mg/dL Urine Glucose (UA) Normal (Normal) mg/dL Urine Ketones 40 H (Negative) mg/dL Urine Blood Negative (Negative) Urine Nitrite Negative (Negative) Urine Bilirubin Moderate H (Negative) Urine Urobilinogen Normal (Normal) mg/dL Ur Leukocyte Esterase Trace H (Negative) Urine Microscopic RBC 0-3 (0-3) per hpf Urine Microscopic WBC 3-5 H (0-3) per hpf Ur Squamous Epith Cells Few (None-Few) per lpf Urine Bacteria None Seen (None-Few) per hpf Hyaline Casts None Seen (None-Few) per lpf Ur Culture Indicated? YES A (NO)
[2019-03-12] MEDS ORDERED: Piperacillin/Tazobactam 3.375 GM in 0.9 % Sodium Chloride Mini Bag 100 ML IVPB ONE ×2 (00:07→00:19)
--- NOTE | 2019-03-12 00:22 | Emergency Department Note ---
Disposition Clinical Impression: Jaundice, Small bowel obstruction Post-operative complication Qualifiers: Surgical complication system/body Area: digestive system Surgical complication type: hemorrhage Procedure type: digestive system Qualified Code(s): K91.840 - Postprocedural hemorrhage of a digestive system organ or structure following a digestive system procedure Disposition: Admitted As Inpatient Condition: Fair Referrals: Get Stark DO [Primary Care Provider] - Forms: ED Satisfaction Letter, Work/School Release Time of Disposition: 00:22 General Adult HPI - General Chief complaint: ED General Medical Stated complaint: Swollen abd / Post op 03/09 Time Seen by Provider: 03/11/19 22:02 Source: patient Mode of arrival: ambulatory Limitations: no limitations - History of Present Illness Pain Scale: 3 - Related Data Home Medications Medication Instructions Recorded Confirmed Albuterol Sulfate [Ventolin Hfa] 2 puff IH Q4H PRN 03/09/19 03/09/19 Flaxseed Oil/[place] 3,6,9 [Sv 1 cap PO BID 03/09/19 03/09/19 Flaxseed Oil 1,300 mg Sftgl] Fluticasone Propionate Nasal 1 spray NS DAILY 03/09/19 03/09/19 [Flonase] Fluticasone/Vilanterol [Breo 1 puff IH DAILY 03/09/19 03/09/19 Ellipta 100-25 Mcg INH] Lisinopril/Hydrochlorothiazide 1 tab PO DAILY 03/09/19 03/09/19 [Zestoretic 20-25 mg Tablet] Lutein/Zeaxanthin [Ocuvite Lutein 1 cap PO BID 03/09/19 03/09/19 25-5 mg Softgel] Non-Formulary Medication 14 drop PO BID 03/09/19 03/09/19 [place]-3S/Dha/Epa/Fish Oil [Fish 1 cap PO BID 03/09/19 03/09/19 Oil 1,200 mg Softgel] Omeprazole Magnesium [Prilosec Otc] 20 mg PO BID 03/09/19 03/09/19 Red Yeast Rice 1,200 mg PO BID 03/09/19 03/09/19 Sildenafil Citrate 100 mg PO AD PRN 03/09/19 Ubidecarenone [Co Q-10] 200 mg PO BID 03/09/19 03/09/19 Vitamin E 400 unit PO BID 03/09/19 03/09/19 Previous Rx's Medication Instructions Recorded Amoxicillin/Clavulanate [Augmentin] 875 mg PO BIDWM 7 Days #14 tablet 03/10/19 OxyCODONE/APAP 5/325 [Percocet 1 each PO Q6HR PRN 7 Days #28 03/10/19 5/325 MG] tablet Allergies Allergy/AdvReac Type Severity Reaction Status Date / Time No Known Allergies Allergy Verified 03/09/19 17:24 Constitutional: Denies: fever Eyes: Reports: as per HPI ENT ED: Reports: as per HPI Cardiovascular: Denies: chest pain Respiratory: Denies: dyspnea Gastrointestinal: Reports: as per HPI Genitourinary: Reports: as per HPI Musculoskeletal: Reports: as per HPI Integumentary: Reports: as per HPI Neurological: Reports: as per HPI Psychiatric: Reports: as per HPI Endocrine: Reports: as per HPI Hematological/Lymphatic: Reports: as per HPI Allergic/Immunologic: Reports: as per HPI Past Medical History - Past Medical History Medical history: Reports: asthma, hyperlipidemia, hypertension Psychiatric history: Reports: no psych history - Social History Smoking Status: Never smoker Smokeless Tobacco Status: No Alcohol use: Reports: occasionally Drug use: Reports: none Physical Exam - General Limitations: no limitations General appearance: alert, in no apparent distress Course Vital Signs Temperature 98.3 F 03/11/19 21:15 Pulse Rate 101 03/11/19 21:15 Respiratory Rate 16 03/11/19 21:15 Blood Pressure 151/97 03/11/19 21:15 O2 Sat by Pulse Oximetry 92 03/11/19 21:15 Temperature 98.3 F 03/11/19 21:15 Pulse Rate 98 03/11/19 22:11 Respiratory Rate 16 03/11/19 21:15 Blood Pressure 151/97 03/11/19 21:15 O2 Sat by Pulse Oximetry 92 03/11/19 21:15 Oxygen Delivery Oxygen Delivery Room Air Medical Decision Making - Lab Data Result diagrams: 03/11/19 22:24 03/11/19 22:24 Lab Results 03/11/19 03/11/19 03/11/19 Range/Units 22:24 22:24 23:13 WBC 11.0 (4.3-11.1) K/mcL RBC 4.90 (4.19-5.50) M/mcL Hgb 15.8 D (12.9-16.9) g/dL Hct 45.1 (37.5-50.1) % MCV 92.0 (83.0-100.0) fL MCH 32.2 (28.0-33.3) pg MCHC 35.0 (31.6-35.5) g/dL RDW 12.6 (11.5-14.5) % Plt Count 186 (140-400) K/mcL MPV 10.7 (9.4-12.4) fL Immature Gran % 0.7 (0-4) % Seg Neutrophils % 83.1 % Lymphocytes % 5.7 % Monocytes % 9.1 % Eosinophils % 1.1 % Basophils % 0.3 % Neutrophils # 9.1 H (1.6-8.9) K/mcL Lymphocytes # 0.6 (0.6-4.6) K/mcL Monocytes # 1.0 (0.0-1.3) K/mcL Eosinophils # 0.1 (0.0-0.6) K/mcL Basophils # 0.0 (0.0-0.2) K/mcL Sodium 134 L (136-145) mEq/L Potassium 3.2 L (3.5-5.1) mEq/L Chloride 91 L (98-107) mEq/L Carbon Dioxide 32 H (23-29) mEq/L BUN 25 H (8-23) mg/dL Creatinine 0.86 (0.70-1.30) mg/dL Est GFR ( Amer) > 60 (> 60) Est GFR (Non-Af Amer) > 60 (> 60) BUN/Creatinine Ratio 29 H (6-26) Glucose 218 H (70-105) mg/dL Calculated Osmolality 289 (280-300) Calcium 10.7 H (8.6-10.3) mg/dL Total Bilirubin 4.9 H (0.3-1.0) mg/dL Direct Bilirubin 2.5 H (0.0-0.2) mg/dL Indirect Bilirubin 2.4 H (0.0-1.2) mg/dL AST 35 (13-39) Units/L ALT 146 H (7-52) Units/L Alkaline Phosphatase 58 (34-104) Units/L Serum Total Protein 6.9 (6.4-8.9) g/dL Albumin 4.0 (3.5-5.7) g/dL Globulin 2.9 (2.4-3.5) g/dL Albumin/Globulin Ratio 1.4 (1.1-2.2) Lipase 3 L (11-82) Units/L Urine Color [place] A (Yellow) Urine Clarity Turbid A (Clear) Urine pH 6.0 (5.0-8.0) pH Units Ur Specific [place] 1.026 H (1.010-1.025) Urine Protein 30 H (Neg-Trace) mg/dL Urine Glucose (UA) Normal (Normal) mg/dL Urine Ketones 40 H (Negative) mg/dL Urine Blood Negative (Negative) Urine Nitrite Negative (Negative) Urine Bilirubin Moderate H (Negative) Urine Urobilinogen Normal (Normal) mg/dL Ur Leukocyte Esterase Trace H (Negative) Urine Microscopic RBC 0-3 (0-3) per hpf Urine Microscopic WBC 3-5 H (0-3) per hpf Ur Squamous Epith Cells Few (None-Few) per lpf Urine Bacteria None Seen (None-Few) per hpf Hyaline Casts None Seen (None-Few) per lpf Ur Culture Indicated? YES A (NO) Attestation Statement - Attestation Attestation: I examined this patient and my medical decision-making was reviewed with the Resident Physician. I agree with the documented findings, disposition and treatment plan as described except to the extent set forth below. 73 year old male presents to the ED with complaits of abdominal pain and swell ing with increased jaundice. Patient appears to have a small bowel obstruction and likley biloma. admitted to surgery to Dr. Rich
[2019-03-12] MEDS ORDERED: OXYCODONE Oral CONC 10 MG/0.5 ML ORAL.SYG SL SCH (04:00)
[2019-03-12] MEDS: 0.9 % Sodium Chloride 1,000 ML IVC SCH ×2 (04:01→14:53)
[2019-03-12] MEDS: Ondansetron 4 MG/2 ML VIAL IVP PRN (04:11)
[2019-03-12] MEDS ORDERED: OXYCODONE Oral CONC 10 MG/0.5 ML ORAL.SYG SL PRN (04:15)
[2019-03-12] MEDS ORDERED: Naloxone 0.4 MG/ML INJ IVP PRN (08:29)
--- NOTE | 2019-03-12 08:38 | Acute Care Surgery H&P ---
Date of Encounter: 03/12/19 Time of Encounter: 07:30 Assessment and Plan (1) Adynamic ileus Current Visit: Yes Status: Acute NPO/IVF. If no improvement in am then will obtain gasrograffin SB series to evaluate for mechanical obstruction. IV Zofran and IV protonix. Daily labs. (2) Jaundice Current Visit: Yes Status: Acute HIDA scan rules out bile leak and is suggestive of hepatocelluar dysfunction. Hepatitis panel pending. (3) Hypertension Current Visit: Yes Status: Acute Stable; on home meds. Qualifiers: Qualified Code(s): I10 - Essential (primary) hypertension History of Present Illness Chief complaint: abdominal pain HPI: Mr. Mcfarlane is a 73 year old male who presents to [facility] c/o worsening abdominal distension and acid reflux. He is POD#3 lap laz. He has been unable to pass gas or have a BM since surgery. Acid reflux is progressively worsening to severe. He reports an episode of nausea followed by vomiting of green emesis in the wee hours this morning. He reports mild diffuse abdominal pain or " discomfort." He denies CP or SOB. He denies fevers. Past Med Surg Social Fam HX - Past Medical History Medical history: asthma, hyperlipidemia, hypertension Psychiatric history: no psych history - Social History Smoking Status: Never smoker Smokeless Tobacco Status: No Alcohol use: occasionally Drug use: none Medications and Allergies Albuterol Sulfate [Ventolin Hfa] 2 puff IH Q4H PRN 03/09/19 [History] Flaxseed Oil/[place] 3,6,9 [Sv Flaxseed Oil 1,300 mg Sftgl] 1 cap PO BID 03/09/19 [History] Fluticasone Propionate Nasal [Flonase] 1 spray NS DAILY 03/09/19 [History] Fluticasone/Vilanterol [Breo Ellipta 100-25 Mcg INH] 1 puff IH DAILY 03/09/19 [ History] Lisinopril/Hydrochlorothiazide [Zestoretic 20-25 mg Tablet] 1 tab PO DAILY 03/09/19 [History] Lutein/Zeaxanthin [Ocuvite Lutein 25-5 mg Softgel] 1 cap PO BID 03/09/19 [History] Non-Formulary Medication 14 drop PO BID 03/09/19 [History] [place]-3S/Dha/Epa/Fish Oil [Fish Oil 1,200 mg Softgel] 1 cap PO BID 03/09/19 [History] Omeprazole Magnesium [Prilosec Otc] 20 mg PO BID 03/09/19 [History] Red Yeast Rice 1,200 mg PO BID 03/09/19 [History] Sildenafil Citrate 100 mg PO AD PRN 03/09/19 [History] Ubidecarenone [Co Q-10] 200 mg PO BID 03/09/19 [History] Vitamin E 400 unit PO BID 03/09/19 [History] Amoxicillin/Clavulanate [Augmentin] 875 mg PO BIDWM 7 Days #14 tablet 03/10/19 [Rx] OxyCODONE/APAP 5/325 [Percocet 5/325 MG] 1 each PO Q6HR PRN 7 Days #28 tablet 03/10/19 [Rx] Allergy/AdvReac Type Severity Reaction Status Date / Time No Known Allergies Allergy Verified 03/09/19 17:24 Review of Systems All systems PM: The remainder of the systems were reviewed and are negative - Constitutional as per HPI, no anorexia, no chills, no fatigue, no fever(s), no night sweats, no weakness - EENT Nose, mouth and throat: no dizziness, no dry mouth, no nasal congestion, no nasal discharge, no sinus pain, no sinus pressure, no sore throat - Cardiovascular no chest pain, no diaphoresis, no dyspnea, no edema - Respiratory no cough, no dyspnea, no wheezing - Gastrointestinal abdominal pain (mild and diffuse), belching, bloating, constipation, heartburn, nausea, vomiting, no coffee ground emesis, no diarrhea, no hematemesis, no hematochezia, no melena - Genitourinary no dysuria, no flank pain, no urinary frequency - Musculoskeletal no back pain, no joint swelling, no limited range of motion, no neck pain - Integumentary pruritus, jaundice, no dry skin, no rash, no wounds - Neurological no dizziness, no focal weakness, no weakness - Psychiatric no anxiety, no depression - Endocrine no fatigue - Hematologic/Lymphatic no easy bleeding, no easy bruising General Surgery Exam Initial Vital Signs Temp Pulse Resp BP Pulse Ox 98.3 F 101 16 151/97 92 03/11/19 21:15 03/11/19 21:15 03/11/19 21:15 03/11/19 21:15 03/11/19 21:15 - General physical appearance well developed, well nourished, no distress, jaundice - Eyes PERRL, normal ocular movement, icteric - ENT no congestion, dry mucosa. negative: nasal discharge - Neck no lymphadectomy, no venous distension - Respiratory clear to percussion, clear to auscultation - Cardiovascular Cardiovascular exam: Present: RRR. Absent: murmurs - Abdomen Abdomen general surgery: Present: bowel sounds present (very quiet), soft, distended, tender (mild diffuse TTP). Absent: guarding, rebound - Incision Incision: Present: clean and dry, intact - Genitourinary Present: normal penis with no external lesions - Integumentary Integumentary general surgery: Present: warm and dry, other (+jaundice) - Neurologic Present: CN 2-12 grossly intact, normal coordination - Musculoskeletal Present: normal posture - Psychiatric Psychiatric general surgery: Present: A&Ox3, appropriate Results - Labs 03/11/19 22:24 03/11/19 22:24 Abnormal lab results 9.1 K/mcL (1.6-8.9) H 03/11/19 22:24 Sodium 134 mEq/L (136-145) L 03/11/19 22:24 Potassium 3.2 mEq/L (3.5-5.1) L 03/11/19 22:24 Chloride 91 mEq/L (98-107) L 03/11/19 22:24 Carbon Dioxide 32 mEq/L (23-29) H 03/11/19 22:24 BUN 25 mg/dL (8-23) H 03/11/19 22:24 29 (6-26) H 03/11/19 22:24 Glucose 218 mg/dL (70-105) H 03/11/19 22:24 Calcium 10.7 mg/dL (8.6-10.3) H 03/11/19 22:24 4.9 mg/dL (0.3-1.0) H 03/11/19 22:24 2.5 mg/dL (0.0-0.2) H 03/11/19 22:24 2.4 mg/dL (0.0-1.2) H 03/11/19 22:24 ALT 146 Units/L (7-52) H 03/11/19 22:24 3 Units/L (11-82) L 03/11/19 22:24 [place] (Yellow) A 03/11/19 23:13 Turbid (Clear) A 03/11/19 23:13 Ur Specific [place] 1.026 (1.010-1.025) H 03/11/19 23:13 30 mg/dL (Neg-Trace) H 03/11/19 23:13 40 mg/dL (Negative) H 03/11/19 23:13 Moderate (Negative) H 03/11/19 23:13 Ur Leukocyte Esterase Trace (Negative) H 03/11/19 23:13 3-5 per hpf (0-3) H 03/11/19 23:13 Ur Culture Indicated? YES (NO) A 03/11/19 23:13 Diabetes panel 03/11/19 Range/Units 22:24 Sodium 134 L (136-145) mEq/L Potassium 3.2 L (3.5-5.1) mEq/L Chloride 91 L (98-107) mEq/L Carbon Dioxide 32 H (23-29) mEq/L BUN 25 H (8-23) mg/dL Creatinine 0.86 (0.70-1.30) mg/dL Glucose 218 H (70-105) mg/dL Calcium 10.7 H (8.6-10.3) mg/dL AST 35 (13-39) Units/L ALT 146 H (7-52) Units/L Alkaline Phosphatase 58 (34-104) Units/L Albumin 4.0 (3.5-5.7) g/dL Calcium panel 03/11/19 Range/Units 22:24 Calcium 10.7 H (8.6-10.3) mg/dL Albumin 4.0 (3.5-5.7) g/dL Pituitary panel 03/11/19 Range/Units 22:24 Sodium 134 L (136-145) mEq/L Potassium 3.2 L (3.5-5.1) mEq/L Chloride 91 L (98-107) mEq/L Carbon Dioxide 32 H (23-29) mEq/L BUN 25 H (8-23) mg/dL Creatinine 0.86 (0.70-1.30) mg/dL Glucose 218 H (70-105) mg/dL Calcium 10.7 H (8.6-10.3) mg/dL Adrenal panel 03/11/19 Range/Units 22:24 Sodium 134 L (136-145) mEq/L Potassium 3.2 L (3.5-5.1) mEq/L Chloride 91 L (98-107) mEq/L Carbon Dioxide 32 H (23-29) mEq/L BUN 25 H (8-23) mg/dL Creatinine 0.86 (0.70-1.30) mg/dL Glucose 218 H (70-105) mg/dL Calcium 10.7 H (8.6-10.3) mg/dL Total Bilirubin 4.9 H (0.3-1.0) mg/dL AST 35 (13-39) Units/L ALT 146 H (7-52) Units/L Alkaline Phosphatase 58 (34-104) Units/L Albumin 4.0 (3.5-5.7) g/dL All other labs normal. - Imaging CT scan - abdomen: image reviewed (+ fluid collection in GB fossa. No dilated CBD or hepatic ducts. Dilated SB.) CT scan - pelvis: image reviewed Additional studies: HIDA scan reveals no bile leak; delayed hepatocellular clearance suggesting hepatocellular dysfunction
[2019-03-12] MEDS ORDERED: Pantoprazole 40 MG VIAL IVP SCH (09:30)
[2019-03-12 12:03] LABS: Basophils % 0.3 %; Eosinophils # 0.2 K/mcL (0.0-0.6); Eosinophils % 1.5 %; Hematocrit 43.9 % (37.5-50.1); Hemoglobin 14.8 g/dL (12.9-16.9); Immature Granulocytes % 0.7 % (0-4); Lymphocytes # 0.7 K/mcL (0.6-4.6); Lymphocytes % 6.7 %; Mean Corpuscular HGB Conc 33.7 g/dL (31.6-35.5); Mean Corpuscular Hemoglobin 31.7 pg (28.0-33.3); Mean Platelet Volume 10.6 fL (9.4-12.4); Monocytes # 1.2 K/mcL (0.0-1.3); Monocytes % 11.1 %; Neutrophils # 8.3 K/mcL (1.6-8.9); Platelet Count 178 K/mcL (140-400); Red Blood Count 4.67 M/mcL (4.19-5.50); Red Cell Distribution Width 12.7 % (11.5-14.5); Segmented Neutrophils % 79.7 %
[2019-03-12 12:20] LABS: Alanine Aminotransferase 108 Units/L (7-52); Albumin 3.7 g/dL (3.5-5.7); Albumin/Globulin Ratio 1.4 (1.1-2.2); Alkaline Phosphatase 52 Units/L (34-104); Aspartate Amino Transferase 22 Units/L (13-39); BUN/Creatinine Ratio 27 (6-26); Bilirubin,Total 3.5 mg/dL (0.3-1.0); Blood Urea Nitrogen 23 mg/dL (8-23); Calcium 10.1 mg/dL (8.6-10.3); Carbon Dioxide 34 mEq/L (23-29); Chloride 93 mEq/L (98-107); Globulin 2.7 g/dL (2.4-3.5); Glucose 186 mg/dL (70-105); Osmolality,Calculated 291 (280-300); Potassium 3.6 mEq/L (3.5-5.1); Sodium 136 mEq/L (136-145); Total Protein 6.4 g/dL (6.4-8.9); eGFR For Non-African Americans > 60 (> 60)
[2019-03-12 12:51] LABS: Hepatitis B Surface Antigen Nonreactive (Nonreactive)
[2019-03-12 13:19] LABS: Hepatitis C Virus Antibody Nonreactive (Nonreactive)
[2019-03-12 13:20] LABS: Hepatitis B Core IgM Nonreactive (Nonreactive)
[2019-03-12 13:21] LABS: Hepatitis A Antibody IgM Nonreactive (Nonreactive)
[2019-03-12] MEDS ORDERED: Pantoprazole 40 MG VIAL IVP ONE (17:26)
[2019-03-12] MEDS: Pantoprazole 40 MG VIAL IVP SCH (17:54)
[2019-03-13] MEDS: 0.9 % Sodium Chloride 1,000 ML IVC SCH (01:38)
[2019-03-13] MEDS: Pantoprazole 40 MG VIAL IVP SCH ×2 (05:01→16:50)
[2019-03-13 05:15] LABS: Basophils # 0.1 K/mcL (0.0-0.2); Basophils % 0.7 %; Eosinophils # 0.2 K/mcL (0.0-0.6); Eosinophils % 1.9 %; Hematocrit 41.9 % (37.5-50.1); Hemoglobin 14.2 g/dL (12.9-16.9); Immature Granulocytes % 1.5 % (0-4); Lymphocytes # 1.2 K/mcL (0.6-4.6); Lymphocytes % 13.8 %; Mean Corpuscular HGB Conc 33.9 g/dL (31.6-35.5); Mean Corpuscular Hemoglobin 31.9 pg (28.0-33.3); Mean Corpuscular Volume 94.2 fL (83.0-100.0); Mean Platelet Volume 10.2 fL (9.4-12.4); Monocytes # 1.3 K/mcL (0.0-1.3); Monocytes % 14.3 %; Platelet Count 175 K/mcL (140-400); Red Blood Count 4.45 M/mcL (4.19-5.50); Red Cell Distribution Width 12.7 % (11.5-14.5); Segmented Neutrophils % 67.8 %
[2019-03-13 05:31] LABS: Alanine Aminotransferase 79 Units/L (7-52); Albumin 3.5 g/dL (3.5-5.7); Albumin/Globulin Ratio 1.5 (1.1-2.2); Alkaline Phosphatase 45 Units/L (34-104); Aspartate Amino Transferase 21 Units/L (13-39); BUN/Creatinine Ratio 27 (6-26); Bilirubin,Total 2.5 mg/dL (0.3-1.0); Blood Urea Nitrogen 22 mg/dL (8-23); Calcium 9.3 mg/dL (8.6-10.3); Carbon Dioxide 31 mEq/L (23-29); Chloride 97 mEq/L (98-107); Globulin 2.4 g/dL (2.4-3.5); Glucose 162 mg/dL (70-105); Osmolality,Calculated 291 (280-300); Potassium 3.4 mEq/L (3.5-5.1); Sodium 137 mEq/L (136-145); Total Protein 5.9 g/dL (6.4-8.9); eGFR For Non-African Americans > 60 (> 60)
--- NOTE | 2019-03-13 09:00 | AcuteCareSurgery Progress Note ---
Date of Encounter: 03/13/19 Time of Encounter: 07:00 - Assessment and Plan (1) Adynamic ileus Current Visit: Yes Status: Acute Gastrograffing SB series today to evaluate for SBO. Maintain NPO until SBFT completed. (2) Jaundice Current Visit: Yes Status: Acute (3) Hypertension Current Visit: Yes Status: Acute Qualifiers: Qualified Code(s): I10 - Essential (primary) hypertension Subjective Patient reports: no new complaints, feels better, pain is less, no flatus, no bowel movement Objective Vital Signs - Last 8 Hours Temp Pulse Resp BP Pulse Ox 03/13/19 06:42 98.5 F 84 16 157/92 94 03/13/19 03:57 98.3 F 88 15 166/94 94 Intake and Output 03/12/19 03/13/19 03/13/19 23:59 07:59 15:59 Intake Total 1000 / 1300 0 / 0 Output Total 375 / 375 800 / 800 Balance 625 / 925 -800 / -800 Intake: IV Fluids 1000 / 1300 0.9 % Sodium Chloride 1,000 ML 1000 / 1000 @ 125 mls/hr IVC .Q8H RACHEL Rx#: [id number] Oral 0 / 0 0 / 0 Output: Urine 375 / 375 800 / 800 Other: Blood Glucose* 148 - General physical appearance no distress, no pain, jaundice - Eyes PERRL, normal ocular movement - ENT normal mucosa, no congestion - Neck Neck exam: no lymphadectomy, no venous distension - Respiratory normal respiratory effort, clear to auscultation - Cardiovascular Cardiovascular exam: Present: RRR. Absent: murmurs - Abdomen Abdomen: Present: bowel sounds present, soft, distended, tender (mild TTP BLQ) Abdominal Tenderness: RLQ, LLQ - Incision Incision: Present: clean and dry, intact - Integumentary other (jaundice is resolving) - Neurologic CN 2-12 grossly intact, normal coordination - Musculoskeletal normal gait, normal posture - Psychiatric oriented to time, oriented to person, oriented to place - Labs 03/13/19 04:56 03/13/19 04:56 Diabetes panel 03/12/19 03/13/19 Range/Units 11:22 04:56 Sodium 136 137 (136-145) mEq/L Potassium 3.6 3.4 L (3.5-5.1) mEq/L Chloride 93 L 97 L (98-107) mEq/L Carbon Dioxide 34 H 31 H (23-29) mEq/L BUN 23 22 (8-23) mg/dL Creatinine 0.86 0.81 (0.70-1.30) mg/dL Glucose 186 H 162 H (70-105) mg/dL Calcium 10.1 9.3 (8.6-10.3) mg/dL AST 22 21 (13-39) Units/L ALT 108 H 79 H (7-52) Units/L Alkaline Phosphatase 52 45 (34-104) Units/L Albumin 3.7 3.5 (3.5-5.7) g/dL Calcium panel 03/12/19 03/13/19 Range/Units 11:22 04:56 Calcium 10.1 9.3 (8.6-10.3) mg/dL Albumin 3.7 3.5 (3.5-5.7) g/dL Pituitary panel 03/12/19 03/13/19 Range/Units 11:22 04:56 Sodium 136 137 (136-145) mEq/L Potassium 3.6 3.4 L (3.5-5.1) mEq/L Chloride 93 L 97 L (98-107) mEq/L Carbon Dioxide 34 H 31 H (23-29) mEq/L BUN 23 22 (8-23) mg/dL Creatinine 0.86 0.81 (0.70-1.30) mg/dL Glucose 186 H 162 H (70-105) mg/dL Calcium 10.1 9.3 (8.6-10.3) mg/dL Adrenal panel 03/12/19 03/13/19 Range/Units 11:22 04:56 Sodium 136 137 (136-145) mEq/L Potassium 3.6 3.4 L (3.5-5.1) mEq/L Chloride 93 L 97 L (98-107) mEq/L Carbon Dioxide 34 H 31 H (23-29) mEq/L BUN 23 22 (8-23) mg/dL Creatinine 0.86 0.81 (0.70-1.30) mg/dL Glucose 186 H 162 H (70-105) mg/dL Calcium 10.1 9.3 (8.6-10.3) mg/dL Total Bilirubin 3.5 H 2.5 H (0.3-1.0) mg/dL AST 22 21 (13-39) Units/L ALT 108 H 79 H (7-52) Units/L Alkaline Phosphatase 52 45 (34-104) Units/L Albumin 3.7 3.5 (3.5-5.7) g/dL Consult Discharge Plan - Plan Referrals: Get Stark DO [Primary Care Provider] -
[2019-03-13] MEDS ORDERED: DIATRIZOATE MEGLUMINE, SODIUM 120 ML SOLUTION PO ONE (14:15)
[2019-03-14] MEDS: Ondansetron 4 MG/2 ML VIAL IVP PRN ×2 (03:07→19:51)
[2019-03-14] MEDS: Pantoprazole 40 MG VIAL IVP SCH ×2 (06:19→17:16)
[2019-03-14] MEDS: *HR* Heparin 5,000 UNIT/ML VIAL SQ SCH ×2 (07:37→17:16)
--- NOTE | 2019-03-14 08:24 | AcuteCareSurgery Progress Note ---
Date of Encounter: 03/14/19 Time of Encounter: 08:24 - Assessment and Plan (1) Adynamic ileus Current Visit: Yes Status: Acute Return of bowel function. Will continue with clear liquids only. Will also add Reglan to see if this will help his motility. Continue serial abdominal exams. Follow BMP and magnesium levels. (2) Jaundice Current Visit: Yes Status: Acute Level continues to decrease. Will continue to monitor. (3) Hypertension Current Visit: Yes Status: Acute Qualifiers: Hypertension type: essential hypertension Qualified Code(s): I10 - Essent ial (primary) hypertension (4) Hypokalemia Current Visit: Yes Status: Acute Potassium level of 3.3. Will replace with IV potassium. Will also check magnesium level as well. Subjective Patient reports: other (Patient states that his abdomen has become distended and is having some nausea. He states he feels similar to what he did prior to the small bowel follow-through study.) Objective Vital Signs - Last 8 Hours Temp Pulse Resp BP Pulse Ox 03/14/19 06:40 98.4 F 80 16 154/80 95 03/14/19 03:47 98.6 F 80 16 152/87 96 Intake and Output 03/13/19 03/14/19 03/14/19 23:59 07:59 15:59 Intake Total 100 / 2500 0 / 0 Output Total 150 / 1075 250 / 250 Balance -50 / 1425 -250 / -250 Intake: IV Fluids 100 / 2500 Potassium Chloride 10 mEq/100mL 100 / 300 10 meq In 100 ml @ 100 mls/hr IVPB Q1H RACHEL Rx#:[id number] Oral 0 / 0 0 / 0 Output: Urine 150 / 1075 250 / 250 Other: Stool Consistency liquid # Voids 3 1 # Bowel Movements 7 1 Weight 91.8 kg Patient Weight 03/14/19 23:59 Weight 91.8 kg - Labs 03/14/19 08:23 03/14/19 08:23 Consult Discharge Plan - Plan Referrals: Get Stark DO [Primary Care Provider] -
[2019-03-14 09:30] LABS: Basophils # 0.1 K/mcL (0.0-0.2); Basophils % 0.7 %; Eosinophils # 0.1 K/mcL (0.0-0.6); Eosinophils % 0.7 %; Hematocrit 43.5 % (37.5-50.1); Hemoglobin 14.7 g/dL (12.9-16.9); Immature Granulocytes % 2.9 % (0-4); Lymphocytes # 1.5 K/mcL (0.6-4.6); Lymphocytes % 13.6 %; Mean Corpuscular HGB Conc 33.8 g/dL (31.6-35.5); Mean Corpuscular Volume 94.6 fL (83.0-100.0); Mean Platelet Volume 10.5 fL (9.4-12.4); Monocytes # 1.6 K/mcL (0.0-1.3); Monocytes % 14.6 %; Neutrophils # 7.3 K/mcL (1.6-8.9); Platelet Count 220 K/mcL (140-400); Red Cell Distribution Width 12.5 % (11.5-14.5); Segmented Neutrophils % 67.5 %
[2019-03-14 09:50] LABS: Alanine Aminotransferase 88 Units/L (7-52); Albumin 3.8 g/dL (3.5-5.7); Albumin/Globulin Ratio 1.4 (1.1-2.2); Alkaline Phosphatase 47 Units/L (34-104); BUN/Creatinine Ratio 29 (6-26); Bilirubin,Total 2.3 mg/dL (0.3-1.0); Blood Urea Nitrogen 22 mg/dL (8-23); Calcium 9.2 mg/dL (8.6-10.3); Carbon Dioxide 28 mEq/L (23-29); Chloride 97 mEq/L (98-107); Globulin 2.7 g/dL (2.4-3.5); Glucose 171 mg/dL (70-105); Osmolality,Calculated 297 (280-300); Potassium 3.3 mEq/L (3.5-5.1); Sodium 140 mEq/L (136-145); Total Protein 6.5 g/dL (6.4-8.9); eGFR For Non-African Americans > 60 (> 60)
[2019-03-14 10:53] LABS: Aspartate Amino Transferase 34 Units/L (13-39)
[2019-03-14] MEDS: Metoclopramide 10 MG/2 ML VIAL IVP SCH ×2 (11:53→17:16)
[2019-03-14 16:06] LABS: Magnesium 1.5 mg/dL (1.6-2.6)
[2019-03-15 05:42] LABS: Basophils # 0.1 K/mcL (0.0-0.2); Basophils % 0.6 %; Eosinophils % 0.3 %; Hematocrit 42.5 % (37.5-50.1); Hemoglobin 14.6 g/dL (12.9-16.9); Lymphocytes # 1.8 K/mcL (0.6-4.6); Lymphocytes % 14.9 %; Mean Corpuscular HGB Conc 34.4 g/dL (31.6-35.5); Mean Corpuscular Volume 93.2 fL (83.0-100.0); Mean Platelet Volume 10.5 fL (9.4-12.4); Monocytes # 1.6 K/mcL (0.0-1.3); Monocytes % 13.2 %; Neutrophils # 8.2 K/mcL (1.6-8.9); Platelet Count 253 K/mcL (140-400); Red Blood Count 4.56 M/mcL (4.19-5.50); Red Cell Distribution Width 12.3 % (11.5-14.5)
[2019-03-15 06:02] LABS: Alanine Aminotransferase 80 Units/L (7-52); Albumin 3.8 g/dL (3.5-5.7); Albumin/Globulin Ratio 1.5 (1.1-2.2); Alkaline Phosphatase 44 Units/L (34-104); Aspartate Amino Transferase 31 Units/L (13-39); BUN/Creatinine Ratio 26 (6-26); Bilirubin,Total 2.2 mg/dL (0.3-1.0); Blood Urea Nitrogen 21 mg/dL (8-23); Calcium 8.7 mg/dL (8.6-10.3); Carbon Dioxide 29 mEq/L (23-29); Chloride 96 mEq/L (98-107); Globulin 2.6 g/dL (2.4-3.5); Glucose 171 mg/dL (70-105); Magnesium 1.8 mg/dL (1.6-2.6); Osmolality,Calculated 291 (280-300); Potassium 3.4 mEq/L (3.5-5.1); Sodium 137 mEq/L (136-145); Total Protein 6.4 g/dL (6.4-8.9); eGFR For Non-African Americans > 60 (> 60)
[2019-03-15] MEDS: Pantoprazole 40 MG VIAL IVP SCH ×2 (06:11→17:43)
[2019-03-15] MEDS: *HR* Heparin 5,000 UNIT/ML VIAL SQ SCH ×2 (06:11→17:43)
[2019-03-15] MEDS: Metoclopramide 10 MG/2 ML VIAL IVP SCH ×5 (06:11→23:50)
[2019-03-15] MEDS ORDERED: Prochlorperazine 10 MG/2 ML VIAL IM ONE (08:49)
[2019-03-15] MEDS ORDERED: Baclofen 10 MG TABLET PO PRN (08:51)
--- NOTE | 2019-03-15 09:26 | AcuteCareSurgery Progress Note ---
Date of Encounter: 03/15/19 Time of Encounter: 07:30 - Assessment and Plan (1) Adynamic ileus Current Visit: Yes Status: Acute Ileus resolving. Advance to full liquid diet. Continue Reglan IV and protonix IV BID. Hyperbilirubinemia improving. Leukocytosis today. Start IV ancef. (2) Jaundice Current Visit: Yes Status: Acute resolving (3) Hypertension Current Visit: Yes Status: Acute stable; on home meds Qualifiers: Hypertension type: essential hypertension Qualified Code(s): I10 - Essential (primary) hypertension (4) Ileus Current Visit: Yes Status: Acute resolving Subjective Patient reports: no new complaints, feels better, pain is less, tolerating liquids well, flatus, bowel movement, afebrile Objective Vital Signs - Last 8 Hours Temp Pulse Resp BP Pulse Ox 03/15/19 07:16 98.4 F 87 15 151/82 93 03/15/19 05:04 97.9 F 82 15 155/84 95 Intake and Output 03/14/19 03/15/19 03/15/19 23:59 07:59 15:59 Intake Total 204 / 604 0 / 0 Output Total 200 / 650 250 / 250 Balance 4 / -46 -250 / -250 Intake: IV Fluids 204 / 604 Magnesium Sulfate 2 GM In 0.9 % 104 / 104 Sodium Chloride 100 ML @ 104 mls/hr IVPB ONCE ONE Rx#: [id number] Potassium Chloride 10 mEq/100mL 100 / 400 10 meq In 100 ml @ 100 mls/hr IVPB Q1H RACHEL Rx#:[id number] Oral 0 / 0 0 / 0 Output: Urine 200 / 650 250 / 250 Other: Meal Dinner Percent of Meal Consumed 0% Stool Size Small Stool Consistency liquid # Voids 1 # Bowel Movements 1 1 - General physical appearance no distress, no pain, jaundice - Eyes PERRL, normal ocular movement, icteric - ENT normal mucosa, no congestion - Neck Neck exam: trachea midline, no venous distension - Respiratory normal respiratory effort, clear to auscultation - Cardiovascular Cardiovascular exam: Present: RRR - Abdomen Abdomen: Present: bowel sounds present, soft, non tender, distended - Integumentary no rash - Neurologic CN 2-12 grossly intact, normal coordination - Musculoskeletal normal gait, normal posture - Psychiatric oriented to time, oriented to person, oriented to place - Labs 03/15/19 04:52 03/15/19 04:52 Diabetes panel 03/14/19 03/15/19 Range/Units 08:23 04:52 Sodium 140 137 (136-145) mEq/L Potassium 3.3 L 3.4 L (3.5-5.1) mEq/L Chloride 97 L 96 L (98-107) mEq/L Carbon Dioxide 28 29 (23-29) mEq/L BUN 22 21 (8-23) mg/dL Creatinine 0.77 0.80 (0.70-1.30) mg/dL Glucose 171 H 171 H (70-105) mg/dL Calcium 9.2 8.7 (8.6-10.3) mg/dL AST 34 31 (13-39) Units/L ALT 88 H 80 H (7-52) Units/L Alkaline Phosphatase 47 44 (34-104) Units/L Albumin 3.8 3.8 (3.5-5.7) g/dL Calcium panel 03/14/19 03/15/19 Range/Units 08:23 04:52 Calcium 9.2 8.7 (8.6-10.3) mg/dL Albumin 3.8 3.8 (3.5-5.7) g/dL Pituitary panel 03/14/19 03/15/19 Range/Units 08:23 04:52 Sodium 140 137 (136-145) mEq/L Potassium 3.3 L 3.4 L (3.5-5.1) mEq/L Chloride 97 L 96 L (98-107) mEq/L Carbon Dioxide 28 29 (23-29) mEq/L BUN 22 21 (8-23) mg/dL Creatinine 0.77 0.80 (0.70-1.30) mg/dL Glucose 171 H 171 H (70-105) mg/dL Calcium 9.2 8.7 (8.6-10.3) mg/dL Adrenal panel 03/14/19 03/15/19 Range/Units 08:23 04:52 Sodium 140 137 (136-145) mEq/L Potassium 3.3 L 3.4 L (3.5-5.1) mEq/L Chloride 97 L 96 L (98-107) mEq/L Carbon Dioxide 28 29 (23-29) mEq/L BUN 22 21 (8-23) mg/dL Creatinine 0.77 0.80 (0.70-1.30) mg/dL Glucose 171 H 171 H (70-105) mg/dL Calcium 9.2 8.7 (8.6-10.3) mg/dL Total Bilirubin 2.3 H 2.2 H (0.3-1.0) mg/dL AST 34 31 (13-39) Units/L ALT 88 H 80 H (7-52) Units/L Alkaline Phosphatase 47 44 (34-104) Units/L Albumin 3.8 3.8 (3.5-5.7) g/dL Consult Discharge Plan - Plan Referrals: Get Stark DO [Primary Care Provider] -
[2019-03-15] MEDS: Fluticasone Propionate Nasal 50 MCG/SPRAY BOTTLE NS SCH (11:00)
[2019-03-15] MEDS ORDERED: Methylnaltrexone 12 MG/0.6 ML SYRINGE SQ ONE (17:42)
[2019-03-15] MEDS: chlorproMAZINE 25 MG TABLET PO PRN (19:35)
[2019-03-15] MEDS: 0.9 % Sodium Chloride 1,000 ML IVC SCH (19:58)
[2019-03-16] MEDS: chlorproMAZINE 25 MG TABLET PO PRN (04:19)
[2019-03-16] MEDS: Metoclopramide 10 MG/2 ML VIAL IVP SCH ×3 (05:30→17:27)
[2019-03-16] MEDS: Pantoprazole 40 MG VIAL IVP SCH ×2 (05:30→17:27)
[2019-03-16] MEDS: *HR* Heparin 5,000 UNIT/ML VIAL SQ SCH ×2 (05:30→17:27)
[2019-03-16] MEDS: Fluticasone Propionate Nasal 50 MCG/SPRAY BOTTLE NS SCH (07:33)
[2019-03-16 08:02] LABS: Basophils # 0.1 K/mcL (0.0-0.2); Basophils % 0.4 %; Eosinophils % 0.3 %; Hematocrit 44.7 % (37.5-50.1); Hemoglobin 15.1 g/dL (12.9-16.9); Immature Granulocytes % 2.9 % (0-4); Lymphocytes % 13.7 %; Mean Corpuscular HGB Conc 33.8 g/dL (31.6-35.5); Mean Corpuscular Hemoglobin 31.7 pg (28.0-33.3); Mean Corpuscular Volume 93.9 fL (83.0-100.0); Mean Platelet Volume 10.5 fL (9.4-12.4); Monocytes # 1.4 K/mcL (0.0-1.3); Monocytes % 9.1 %; Neutrophils # 10.9 K/mcL (1.6-8.9); Platelet Count 327 K/mcL (140-400); Red Blood Count 4.76 M/mcL (4.19-5.50); Red Cell Distribution Width 12.2 % (11.5-14.5); Segmented Neutrophils % 73.6 %
[2019-03-16 08:21] LABS: BUN/Creatinine Ratio 22 (6-26); Blood Urea Nitrogen 18 mg/dL (8-23); Calcium 8.6 mg/dL (8.6-10.3); Carbon Dioxide 28 mEq/L (23-29); Chloride 96 mEq/L (98-107); Glucose 183 mg/dL (70-105); Magnesium 1.9 mg/dL (1.6-2.6); Osmolality,Calculated 291 (280-300); Phosphorous 2.2 mg/dL (2.7-4.5); Potassium 3.4 mEq/L (3.5-5.1); Sodium 137 mEq/L (136-145); eGFR For Non-African Americans > 60 (> 60)
--- NOTE | 2019-03-16 09:24 | AcuteCareSurgery Progress Note ---
Date of Encounter: 03/16/19 Time of Encounter: 09:22 - Assessment and Plan (1) Acute cholecystitis Current Visit: Yes Status: Acute POD #7 s/p lap laz with IOC complicated by prolonged ileus; reports feeling hungry; cont on FLD; plan for soft diet at dinner activity as tolerated pain control chemical dvt prophylaxis IS usage will cont to follow Subjective Patient reports: no new complaints, feels better, tolerating liquids well Objective Vital Signs - Last 8 Hours Temp Pulse Resp BP Pulse Ox 03/16/19 07:10 98.4 F 105 16 134/80 91 03/16/19 06:52 98.6 F 105 15 117/78 92 03/16/19 03:48 94 03/16/19 03:42 98.3 F 104 15 138/91 94 Intake and Output 03/15/19 03/16/19 03/16/19 23:59 07:59 15:59 Intake Total 100 / 202 100 / 100 Output Total 525 / 925 250 / 250 Balance -425 / -723 -150 / -150 Intake: IV Fluids 100 / 202 100 / 100 Ancef 2,000 MG In 0.9 % Sodium 100 / 100 100 / 100 Chloride 100 ML @ 200 mls/hr IVPB Q8HR [facility] Rx#:[id number] Oral 0 / 0 0 / 0 Output: Urine 525 / 925 250 / 250 - General physical appearance no distress - Respiratory normal expansion, normal respiratory effort - Cardiovascular Cardiovascular exam: Present: RRR - Abdomen Abdomen: Present: soft, non tender - Incision Incision: Present: clean and dry, intact - Neurologic CN 2-12 grossly intact - Labs 03/16/19 07:29 03/16/19 07:29 Diabetes panel 03/16/19 Range/Units 07:29 Sodium 137 (136-145) mEq/L Potassium 3.4 L (3.5-5.1) mEq/L Chloride 96 L (98-107) mEq/L Carbon Dioxide 28 (23-29) mEq/L BUN 18 (8-23) mg/dL Creatinine 0.83 (0.70-1.30) mg/dL Glucose 183 H (70-105) mg/dL Calcium 8.6 (8.6-10.3) mg/dL Calcium panel 03/16/19 Range/Units 07:29 Calcium 8.6 (8.6-10.3) mg/dL Phosphorus 2.2 L (2.7-4.5) mg/dL Pituitary panel 03/16/19 Range/Units 07:29 Sodium 137 (136-145) mEq/L Potassium 3.4 L (3.5-5.1) mEq/L Chloride 96 L (98-107) mEq/L Carbon Dioxide 28 (23-29) mEq/L BUN 18 (8-23) mg/dL Creatinine 0.83 (0.70-1.30) mg/dL Glucose 183 H (70-105) mg/dL Calcium 8.6 (8.6-10.3) mg/dL Adrenal panel 03/16/19 Range/Units 07:29 Sodium 137 (136-145) mEq/L Potassium 3.4 L (3.5-5.1) mEq/L Chloride 96 L (98-107) mEq/L Carbon Dioxide 28 (23-29) mEq/L BUN 18 (8-23) mg/dL Creatinine 0.83 (0.70-1.30) mg/dL Glucose 183 H (70-105) mg/dL Calcium 8.6 (8.6-10.3) mg/dL Consult Discharge Plan - Plan Referrals: Get Stark DO [Primary Care Provider] -
[2019-03-16] MEDS ORDERED: Potassium Phosphate 44 MEQ in 0.9 % Sodium Chloride 250 ML IVPB ONE (14:18)
[2019-03-17] MEDS: Metoclopramide 10 MG/2 ML VIAL IVP SCH ×3 (00:10→11:25)
[2019-03-17] MEDS: *HR* Heparin 5,000 UNIT/ML VIAL SQ SCH (05:12)
[2019-03-17] MEDS: Pantoprazole 40 MG VIAL IVP SCH (05:12)
[2019-03-17 07:27] LABS: Basophils # 0.1 K/mcL (0.0-0.2); Basophils % 0.5 %; Eosinophils # 0.1 K/mcL (0.0-0.6); Eosinophils % 0.4 %; Hematocrit 40.4 % (37.5-50.1); Hemoglobin 13.8 g/dL (12.9-16.9); Lymphocytes # 2.3 K/mcL (0.6-4.6); Lymphocytes % 17.4 %; Mean Corpuscular HGB Conc 34.2 g/dL (31.6-35.5); Mean Corpuscular Hemoglobin 31.9 pg (28.0-33.3); Mean Corpuscular Volume 93.3 fL (83.0-100.0); Mean Platelet Volume 10.3 fL (9.4-12.4); Monocytes # 0.9 K/mcL (0.0-1.3); Monocytes % 6.8 %; Neutrophils # 9.7 K/mcL (1.6-8.9); Platelet Count 336 K/mcL (140-400); Red Blood Count 4.33 M/mcL (4.19-5.50); Segmented Neutrophils % 71.9 %
[2019-03-17 07:46] VITALS: BP 126/78
[2019-03-17] MEDS: Fluticasone Propionate Nasal 50 MCG/SPRAY BOTTLE NS SCH (09:30)
[2019-03-17 10:12] LABS: Alanine Aminotransferase 68 Units/L (7-52); Albumin 3.6 g/dL (3.5-5.7); Albumin/Globulin Ratio 1.5 (1.1-2.2); Alkaline Phosphatase 45 Units/L (34-104); Aspartate Amino Transferase 35 Units/L (13-39); BUN/Creatinine Ratio 21 (6-26); Bilirubin,Direct 0.6 mg/dL (0.0-0.2); Bilirubin,Total 1.6 mg/dL (0.3-1.0); Blood Urea Nitrogen 16 mg/dL (8-23); Calcium 8.1 mg/dL (8.6-10.3); Carbon Dioxide 28 mEq/L (23-29); Chloride 97 mEq/L (98-107); Globulin 2.4 g/dL (2.4-3.5); Glucose 155 mg/dL (70-105); Magnesium 1.8 mg/dL (1.6-2.6); Osmolality,Calculated 288 (280-300); Phosphorous 1.9 mg/dL (2.7-4.5); Potassium 3.3 mEq/L (3.5-5.1); Sodium 137 mEq/L (136-145); eGFR For Non-African Americans > 60 (> 60)
[2019-03-17] MEDS ORDERED: Potassium Phosphate 44 MEQ in 0.9 % Sodium Chloride 250 ML IVPB ONE (10:21)
--- NOTE | 2019-03-17 10:28 | Discharge Summary ---
<Nickie Parker L - Last Filed: 03/17/19 10:26> Date of Encounter: 03/17/19 Time of Encounter: 10:26 - Discharge Diagnosis (1) Ileus Priority: Primary Status: Resolved (2) Electrolyte imbalance Priority: Secondary Status: Resolved (3) Jaundice Priority: Secondary Status: Resolved General Surgery Exam Initial Vital Signs Temp Pulse Resp BP Pulse Ox 98.3 F 101 16 151/97 92 03/11/19 21:15 03/11/19 21:15 03/11/19 21:15 03/11/19 21:15 03/11/19 21:15 Vital Signs Temp Pulse Resp BP Pulse Ox 03/17/19 07:40 98.2 F 82 14 126/78 93 03/17/19 03:31 98.1 F 86 15 148/83 95 03/16/19 19:08 98.5 F 85 15 127/78 93 03/16/19 14:41 98.1 F 90 16 110/72 93 03/16/19 12:00 99.7 F H 95 16 120/76 94 03/16/19 11:05 97.4 F L 96 18 115/74 94 Intake and Output 03/16/19 03/17/19 03/17/19 23:59 07:59 15:59 Intake Total 420 / 1100 100 / 100 Output Total 125 / 375 275 / 275 Balance 295 / 725 -175 / -175 Intake: IV Fluids 360 / 560 100 / 100 Potassium Phosphate 44 MEQ In 0 260 / 260 .9 % Sodium Chloride 250 ML @ 40 mls/hr IVPB ONCE ONE Rx#: [id number] Ancef 2,000 MG In 0.9 % Sodium 100 / 300 100 / 100 Chloride 100 ML @ 200 mls/hr IVPB Q8HR [facility] Rx#:[id number] Oral 60 / 540 0 / 0 Output: Urine 125 / 375 275 / 275 VITAL SIGNS: Reviewed. See [facility] GENERAL: In no apparent distress. HEENT: Normocephalic, atraumatic, pupils are equal and reactive, extraocular motions intact, oropharynx is pink and moist, there is no neck adenopathy or JVD noted. CHEST/RESPIRATORY: The thorax is free from signs of trauma. Lung sounds: clear to auscultation, normal respiratory effort CARDIAC: Regular rate and rhythm. Normal S1 and S2, without murmurs, gallops, or rubs. VASCULAR: No Edema. 2+ peripheral pulses. ABDOMEN: soft, nontender, active bowel sounds INCISION: Surgical incision is clean, dry, and intact. There are no signs of cellulitis or infection noted. MUSCULOSKELETAL: Good range of motion of all major joints. Extremities without clubbing, cyanosis or edema. NEUROLOGIC EXAM: Alert and oriented x 3. Speech normal. Follows commands. PSYCHIATRIC: Mood normal. SKIN: No rash or lesions. - Hospital Course Hospital course: Mr. Mcfarlane is a 73 year old male who presented on 03/12/2019 with complaints of abdominal pain/distention and acid reflux. He was postoperative day 3 of laparoscopic cholecystectomy. He stated he had not been able to pass gas are having a bowel movement. A small bowel follow-through was noted to have contrast pass into the colon in an appropriate time but he did have dilated loops of small bowel consistent with an ileus. He was treated conservatively, appropriately resuscitated (including correction of electrolyte disturbances), IV antibiotics were initiated, and he has regained bowel function. He is ambulating avoiding without difficulty, tolerating a soft diet without nausea or vomiting, having bowel movements, vital signs are stable, and his pain is controlled. We will begin discharge planning to home with a follow-up in the office in approximately 10 to 14 days. - Time Spent with Patient Total time spent providing and/or coordinating discharge services: Less than 30 minutes - Discharge Medications Prescriptions: New Metoclopramide [Reglan] 10 mg PO Q6HR PRN #30 tablet PRN Reason: nausea/bloating/distention Docusate Sodium [Colace] 100 mg PO BID PRN #30 capsule PRN Reason: Contstipation Polyethylene Glycol 3350 [MiraLAX Powder Bulk 17.9 Oz] 1 scoop PO DAILY 30 Days #510 gm Continued Red Yeast Rice 1,200 mg PO BID Fluticasone Propionate Nasal [Flonase] 1 spray NS DAILY Flaxseed Oil/[place] 3,6,9 [Sv Flaxseed Oil 1,300 mg Sftgl] 1 cap PO BID Non-Formulary Medication 14 drop PO BID Vitamin E 400 unit PO BID [place]-3S/Dha/Epa/Fish Oil [Fish Oil 1,200 mg Softgel] 1 cap PO BID Lutein/Zeaxanthin [Ocuvite Lutein 25-5 mg Softgel] 1 cap PO BID Omeprazole Magnesium [Prilosec Otc] 20 mg PO BID Lisinopril/Hydrochlorothiazide [Zestoretic 20-25 mg Tablet] 1 tab PO DAILY Fluticasone/Vilanterol [Breo Ellipta 100-25 Mcg INH] 1 puff IH DAILY Ubidecarenone [Co Q-10] 200 mg PO BID Sildenafil Citrate 100 mg PO AD PRN PRN Reason: ERECTION Albuterol Sulfate [Ventolin Hfa] 2 puff IH Q4H PRN PRN Reason: Shortness Of Breath Home Medications: Albuterol Sulfate [Ventolin Hfa] 2 puff IH Q4H PRN 03/09/19 [History] Flaxseed Oil/Boston 3,6,9 [Sv Flaxseed Oil 1,300 mg Sftgl] 1 cap PO BID 03/09/19 [History] Fluticasone Propionate Nasal [Flonase] 1 spray NS DAILY 03/09/19 [History] Fluticasone/Vilanterol [Breo Ellipta 100-25 Mcg INH] 1 puff IH DAILY 03/09/19 [History] Lisinopril/Hydrochlorothiazide [Zestoretic 20-25 mg Tablet] 1 tab PO DAILY 03/09/19 [History] Lutein/Zeaxanthin [Ocuvite Lutein 25-5 mg Softgel] 1 cap PO BID 03/09/19 [History] Non-Formulary Medication 14 drop PO BID 03/09/19 [History] Boston-3S/Dha/Epa/Fish Oil [Fish Oil 1,200 mg Softgel] 1 cap PO BID 03/09/19 [History] Omeprazole Magnesium [Prilosec Otc] 20 mg PO BID 03/09/19 [History] Red Yeast Rice 1,200 mg PO BID 03/09/19 [History] Sildenafil Citrate 100 mg PO AD PRN 03/09/19 [History] Ubidecarenone [Co Q-10] 200 mg PO BID 03/09/19 [History] Vitamin E 400 unit PO BID 03/09/19 [History] OxyCODONE/APAP 5/325 [Percocet 5/325 MG] 1 tab PO Q6HR PRN 7 Days #28 tablet 03/14/19 [Rx] Docusate Sodium [Colace] 100 mg PO BID PRN #30 capsule 03/17/19 [Rx] Metoclopramide [Reglan] 10 mg PO Q6HR PRN #30 tablet 03/17/19 [Rx] Polyethylene Glycol 3350 [MiraLAX Powder Bulk 17.9 Oz] 1 scoop PO DAILY 30 Days #510 gm 03/17/19 [Rx] Allergies/Adverse Reactions: Allergy/AdvReac Type Severity Reaction Status Date / Time No Known Allergies Allergy Verified 03/14/19 09:08 Date of admission: 03/13/19 12:53 Primary care physician: Get Stakr DO Discharging clinician: Edna parker) Anticipated date of discharge: 03/17/19 Labs on day of discharge: Labs from last 24 hours 03/17/19 03/17/19 03/17/19 08:52 06:41 06:41 WBC 13.4 H RBC 4.33 Hgb 13.8 Hct 40.4 MCV 93.3 MCH 31.9 MCHC 34.2 RDW 12.0 Plt Count 336 MPV 10.3 Immature Gran % 3.0 Seg Neutrophils % 71.9 Lymphocytes % 17.4 Monocytes % 6.8 Eosinophils % 0.4 Basophils % 0.5 Neutrophils # 9.7 H Lymphocytes # 2.3 Monocytes # 0.9 Eosinophils # 0.1 Basophils # 0.1 Sodium 137 Potassium 3.3 L Chloride 97 L Carbon Dioxide 28 BUN 16 Creatinine 0.78 Est GFR ( Amer) > 60 Est GFR (Non-Af Amer) > 60 BUN/Creatinine Ratio 21 Glucose 155 H Calculated Osmolality 288 Calcium 8.1 L Phosphorus 1.9 L Magnesium 1.8 Total Bilirubin 1.6 H Direct Bilirubin 0.6 H Indirect Bilirubin 1.0 AST 35 ALT 68 H Alkaline Phosphatase 45 Serum Total Protein 6.0 L Albumin 3.6 Globulin 2.4 Albumin/Globulin Ratio 1.5 Specimen Rejected Hemolyzed - Impressions ITS Impressions Abdomen/Pelvis CT 03/11/19 22:14 Pelvis: Prostatomegaly. Prominent impression upon the bladder. Bladder calculus as above. No inguinal adenopathy. Peritoneum/Retroperitoneum: No free air. Bones/Soft Tissues: Degenerative change of the spine. IMPRESSION: Multiple dilated loops of small bowel within the abdomen and pelvis, in keeping with small bowel obstruction, with transition point in the right hemiabdomen. Status post cholecystectomy. Small amount of complex fluid is seen at the gallbladder fossa, potentially postoperative hemorrhage, complex seroma, complex biloma, or early phlegmon. Appendix is upper limits of normal in caliber. Correlate with clinical presentation. Continued follow-up suggested. Trace pleural effusions and basilar atelectasis. Diverticulosis. D/ / Bro Mejia MD / Bro Mejia MD Interpreting Provider: Bro Mejia MD Bile Acid Absorption NM 03/12/19 02:49 IMPRESSION: No non anatomic uptake of tracer is seen to suggest bile leak Poor washout of tracer from the liver suggesting hepatocellular dysfunction. There are dilated small bowel loops seen, in keeping with the abnormal appearance of the small bowel loops on recent CT scan. D/ / Jony Kingsley MD / Jony Kingsley MD Interpreting Provider: Jony Kingsley MD Small Bowel X-Ray 03/13/19 07:01 IMPRESSION: There are diffusely dilated small bowel loops with a mild delay in small bowel transit, with the differential favoring partial small bowel obstruction or ileus. D/ / 03/13/2019 15:15:35 Praful Earl MD / Francesca Waite Interpreting Provider: Praful Earl MD X-Ray 03/15/19 17:35 IMPRESSION: Findings again suggest a small bowel obstruction D/ / Danny Salinas MD / Danny Salnias MD Interpreting Provider: Danny Salinas MD X-Ray 03/16/19 07:17 IMPRESSION: Moderate to 2 severe persistent dilatation of multiple mid small bowel loops. Partial distal small-bowel obstruction suspected. No improvement seen since yesterday. D/ / Emile Del Castillo MD / Emile Del Castillo MD Interpreting Provider: Emile Del Castillo MD - Patient Status Disposition: Home, Self-Care Condition: Fair Functional capacity at discharge: independent ambulation Overall status at discharge: patient is progressing back to baseline - Discharge Instructions Instructions: Low Fiber Diet (GEN), Laparoscopic Cholecystectomy (DC), Ileus (DC) Follow Up With: Get Stark DO [Primary Care Provider] - Nickie Parker CNP [Advanced Practice Nurse] - 03/27/19 2:15 pm Additional Instructions: General Surgical Discharge Instructions 1. No pushing, pulling, or lifting greater than 15 lbs for 2-4 weeks (depending upon procedure). 2. You may shower beginning today, but no tub baths, soaking, or swimming for 2 weeks. 3. You may resume driving when you are off narcotics and are safe to react in a car. 4. You may take [id number] ibuprofen or Tylenol if needed for discomfort. 5. Take stool softeners (Colace) or a water based laxative (Miralax) as directed. You may hold for loose stools. Take Colace twice-daily every day. Take MiraLAX every day until you are having a bowel movement every day that is mashed potatoes consistency or not painful. You may then decrease the MiraLAX dosage to every other day until you continue having bowel movements as previously described. You may then decrease MiraLAX to as needed. Once you fill your bowel habits have returned to normal and they are not painful you may stop the Colace and take either as needed. 6. Report any fevers greater than 100.5F, increase abdominal discomfort, drainage that looks like pus, increased redness or pain at the surgical site, or any vomiting. 7. Report any pain in the calves, shortness of breath, or rapid heartbeat. 8. Follow-up in the office as directed. 9. If you were prescribed antibiotics, do not stop them without talking to your provider. 10. Take the Reglan (metoclopramide) if needed for feelings of nausea or bloating. - Diet and Activity Activity: increase activity as tolerated Diet: other (Low residue) <Layla Nieves,Hydi F - Last Filed: 03/17/19 11:27> Date of Encounter: 03/17/19 - Discharge Diagnosis (1) Adynamic ileus Status: Acute (2) Jaundice Status: Resolved (3) Hypertension Status: Acute Qualifiers: Hypertension type: essential hypertension Qualified Code(s): I10 - Essential (primary) hypertension (4) Ileus Status: Resolved General Surgery Exam Initial Vital Signs Temp Pulse Resp BP Pulse Ox 98.3 F 101 16 151/97 92 03/11/19 21:15 03/11/19 21:15 03/11/19 21:15 03/11/19 21:15 03/11/19 21:15 - Hospital Course Hospital course: Mr. Mcfarlane is a 73 year old male - Time Spent with Patient Total time spent providing and/or coordinating discharge services: Date of admission: 03/13/19 12:53 Primary care physician: Get Stark, DO Labs on day of discharge: Labs from last 24 hours 03/17/19 03/17/19 03/17/19 08:52 06:41 06:41 WBC 13.4 H RBC 4.33 Hgb 13.8 Hct 40.4 MCV 93.3 MCH 31.9 MCHC 34.2 RDW 12.0 Plt Count 336 MPV 10.3 Immature Gran % 3.0 Seg Neutrophils % 71.9 Lymphocytes % 17.4 Monocytes % 6.8 Eosinophils % 0.4 Basophils % 0.5 Neutrophils # 9.7 H Lymphocytes # 2.3 Monocytes # 0.9 Eosinophils # 0.1 Basophils # 0.1 Sodium 137 Potassium 3.3 L Chloride 97 L Carbon Dioxide 28 BUN 16 Creatinine 0.78 Est GFR ( Amer) > 60 Est GFR (Non-Af Amer) > 60 BUN/Creatinine Ratio 21 Glucose 155 H Calculated Osmolality 288 Calcium 8.1 L Phosphorus 1.9 L Magnesium 1.8 Total Bilirubin 1.6 H Direct Bilirubin 0.6 H Indirect Bilirubin 1.0 AST 35 ALT 68 H Alkaline Phosphatase 45 Serum Total Protein 6.0 L Albumin 3.6 Globulin 2.4 Albumin/Globulin Ratio 1.5 Specimen Rejected Hemolyzed - Impressions ITS Impressions Abdomen/Pelvis CT 03/11/19 22:14 Pelvis: Prostatomegaly. Prominent impression upon the bladder. Bladder calculus as above. No inguinal adenopathy. Peritoneum/Retroperitoneum: No free air. Bones/Soft Tissues: Degenerative change of the spine. IMPRESSION: Multiple dilated loops of small bowel within the abdomen and pelvis, in keeping with small bowel obstruction, with transition point in the right hemiabdomen. Status post cholecystectomy. Small amount of complex fluid is seen at the gallbladder fossa, potentially postoperative hemorrhage, complex seroma, complex biloma, or early phlegmon. Appendix is upper limits of normal in caliber. Correlate with clinical presentation. Continued follow-up suggested. Trace pleural effusions and basilar atelectasis. Diverticulosis. D/ / Bro Mejia MD / Bro Mejia MD Interpreting Provider: Bro Mejia MD Bile Acid Absorption NM 03/12/19 02:49 IMPRESSION: No non anatomic uptake of tracer is seen to suggest bile leak Poor washout of tracer from the liver suggesting hepatocellular dysfunction. There are dilated small bowel loops seen, in keeping with the abnormal appearance of the small bowel loops on recent CT scan. D/ / Jony Kingsley MD / Jony Kingsley MD Interpreting Provider: Jony Kingsley MD Small Bowel X-Ray 03/13/19 07:01 IMPRESSION: There are diffusely dilated small bowel loops with a mild delay in small bowel transit, with the differential favoring partial small bowel obstruction or ileus. D/ / 03/13/2019 15:15:35 Praful Earl MD / Francesca Waite Interpreting Provider: Praful Earl MD X-Ray 03/15/19 17:35 IMPRESSION: Findings again suggest a small bowel obstruction D/ / Danny Salinas MD / Danny Salinas MD Interpreting Provider: Danny Salinas MD X-Ray 03/16/19 07:17 IMPRESSION: Moderate to 2 severe persistent dilatation of multiple mid small bowel loops. Partial distal small-bowel obstruction suspected. No improvement seen since yesterday. D/ / Emile Del Castillo MD / Emile Del Castillo MD Interpreting Provider: Emile Del Castillo MD - Attending Attestation I examined this patient and my medical decision-making was reviewed with the SOLAR TECHNICIAN. I agree with the documented findings, disposition and treatment plan as described except to the extent set forth below.
== END 2019-03-17 12:20 | disposition home or self-care (01) | DRG 390 ==
LOC: 3ANU 20:54 → EMEROOARM 20:54 → 3ANU 03-12 01:00
PROVIDERS: ADMIT Surgery; ATTEND Surgery